=== PATIENT | male | born 1945 | race Caucasian/White ===

== ENCOUNTER 2018-07-10 21:13 | Inpatient (IN) ==
[2018-07-10 21:19] VITALS: TEMP 97.7
[2018-07-10 21:58] LABS: Hematocrit (blood only) 45.9 % (42-52); Hemoglobin 15.6 g/dL (14.0-18.0); Mean Corpuscular Volume 96.8 fL (80-100); Mean Platelet Volume 10.2 fL (7.4-10.4); Platelet Count 197 K/uL (130-400); RDW Coefficient of Variation 13.1 % (11.5-14.5); RDW Standard Deviation 46.2 fL (36.4-46.3); Red Blood Count 4.74 M/uL (4.7-6.1); White Blood Count 7.48 K/uL (4.8-10.8)
[2018-07-10 22:06] LABS: Alanine Aminotransferase 34 U/L (12-78); Albumin Level 3.4 gm/dl (3.4-5.0); Aspartate Aminotransferase 18 U/L (15-37); BUN Creatinine Ratio 14.2 (10-20); Blood Urea Nitrogen 17 mg/dl (7-18); Calcium 8.7 mg/dl (8.5-10.1); Carbon Dioxide 25 mmol/L (21-32); Chloride 109 mmol/L (98-107); Creatinine Clr Calc Pharmacy 66.4 ml/min; Est GFR (African American) 69.8; Est GFR (Non-African American) 60.2; Glucose 93 mg/dl (70-99); Magnesium 2.2 mg/dl (1.8-2.4); Potassium 3.9 mmol/L (3.5-5.1); Sodium 141 mmol/L (136-145)
[2018-07-10 22:09] LABS: INR 1.1 (0.9-1.1); Partial Thromboplastin Ratio 1.1; Partial Thromboplastin Time 29.7 Seconds (21.0-31.0); Prothrombin Time 10.6 Seconds (9.0-12.0)
[2018-07-10 22:12] LABS: Albumin Globulin Ratio 0.9 (0.9-2); Alkaline Phosphatase 75 U/L (45-117); Bilirubin,Total 0.4 mg/dl (0.2-1); Globulin 3.7 gm/dl (2.5-4.0); Phosphorus 3.5 mg/dl (2.5-4.9); Total Protein 7.1 gm/dl (6.4-8.2)
[2018-07-10 22:25] LABS: Troponin I < 0.015 ng/ml (0-0.045)
[2018-07-10] MEDS ORDERED: OPTIRAY 320 125ml IV PRN (22:45)
--- NOTE | 2018-07-10 22:48 | CT Scan Report ---
CT head/brain wo con CT DOSE: 1328.06 mGy.cm HISTORY: left facial numbness TECHNIQUE: Multiaxial CT images of the head were performed without the use of intravenous contrast. A dose lowering technique was utilized adhering to the principles of ALARA. Comparison: None. Findings: The paranasal sinuses and mastoid air cells are clear. The calvarium and skull base are int act. The ventricles and sulci are within normal limits. There is no mass, hematoma, midline shift, or acute infarct. Impression: No acute intracranial abnormality. The above report was generated using voice recognition software. It may contain grammatical, syntax or spelling errors. Electronically signed by: Dexter Griffiths M.D. 07/10/2018 10:47 PM
--- NOTE | 2018-07-10 22:51 | CT Scan Report ---
CT angio head w con HISTORY: left facial numbness TECHNIQUE: Multiaxial CT angiography of the head was performed IV contrast: 15 Maximum inten sity projection images were also obtained. A dose lowering technique was utilized adhering to the pr inciples of KD. COMPARISON: None. FINDINGS: There is no mass, hematoma, midline shift, or acute infarct. Visualized intracranial sports team marketing intern al carotid arteries, distal vertebral arteries, and basilar artery are widely patent. There is no sig nificant stenosis, occlusion, or aneurysm seen within the bilateral ACAs, MCAs, or grades 1 thru 5 teacher. There is mod erate atherosclerotic change at the carotid siphons and basilar the [place]. No high-grade a nd critical stenosis. Congenitally small right vertebral vessel. IMPRESSION: No significant stenosis, occlusion, or aneurysm within the [place]. Moderate atherosclerotic change base of the [place] and cavernous sinuses. No evidence for significant or high-grade stenotic process. The above report was generated using voice recognition software. It may contain grammatical, syntax or spelling errors. Electronically signed by: Dexter Griffiths M.D. 07/10/2018 10:50 PM
--- NOTE | 2018-07-10 22:54 | CT Scan Report ---
CT angio neck with con HISTORY: left facial numbness TECHNIQUE: Multiaxial CT angiography of the neck was performed IV contrast: None. All measurem ents were calculated based on NASCET criteria. Maximum intensity projection images were also obtaine d. A dose lowering technique was utilized adhering to the principles of ALARA. COMPARISON STUDY: None. FINDINGS: The aortic arch and proximal great vessels are widely patent. There is no significant sten osis, occlusion, or dissection identified within the bilateral common carotid, internal carotid, or v ertebral arteries. Scattered plaque formation of the carotid bifurcations. Congenitally small right v ertebral vessel IMPRESSION: No significant stenosis, occlusion, or dissection identified within the carotid or vertebral arteries . Scattered plaque formation. Congenitally small right vertebral artery. The above report was generated using voice recognition software. It may contain grammatical, syntax or spelling errors. Electronically signed by: Dexter Griffiths M.D. 07/10/2018 10:53 PM
[2018-07-10 23:37] LABS: Appearance Urine Clear (Clear); Bacteria Urine Automated Negative (Negative); Bilirubin Urine Negative (Negative); Cast Urine Automated 0 /lpf (0-5); Color Urine Yellow; Epithelial Cell Urine Auto 0-5 /lpf (0-5); Glucose Urine UA Negative (Negative); Ketones Urine Negative (Negative); Leukocyte Esterase Urine Negative (Negative); Nitrite Urine Negative (Negative); Protein Urine Negative (Negative); Specific Gravity Urine > 1.045 (1.000-1.030); Urobilinogen Urine Negative (Negative); pH Urine 6.5 (4.5-7.5)
[2018-07-11] MEDS ORDERED: SODIUM CHLORIDE 0.9% 1000ML 500 ML IV ONE (00:02)
--- NOTE | 2018-07-11 02:09 | Emergency Department Note ---
Entered by Carlos Enrique Zamora acting as a scribe for Adán Stubbs MD History of Present Illness General Chief complaint: Neuro Symptoms/Deficit Stated complaint: LEFT SIDE FACIAL NUMBNESS, HX OF AFIB Time Seen by Provider: 07/10/18 22:00 Source: patient History of Present Illness Onset (ago): hour(s) 10 Location: face (left sided) Pain Consistency: + other (resolving) Quality: + other (numbness) Associated symptoms: + denies other symptoms (cough, congestion, diarrhea); no fever/chills and no nausea/vomiting The patient is a 72 year old male who presents to the Emergency Room with complaints of resolving numbness to the left side of his face beginning 10 hours ago. The patient states he was lightheaded this morning and intermittently throughout the day. He reports it was not until 12 noon that he developed left sided facial numbness. The patient notes he still has some numbness, but his symptoms have started resolving. He states he has a history of ventricular fibrillation and was on Coumadin for several years. The patient reports he stopped taking Coumadin about 2 years ago when he switched cardiologists because he no longer had ventricular fibrillation. He notes he has been taking a baby aspirin since. The patient states he was started on Eliquis last week because his a-fib returned at a follow up appointment with Dr. Sotelo, Cardiology. He denies fevers, chills, cough, congestion, nausea, vomiting, and diarrhea. Home Medications Home Medications Medication Instructions Recorded Confirmed Type apixaban [Eliquis] 5 mg PO BID 07/10/18 07/10/18 History bupropion HCl 150 mg PO DAILY 07/10/18 07/10/18 History multivitamin 1 tab PO DAILY 07/10/18 07/10/18 History Allergies Allergy/AdvReac Type Severity Reaction Status Date / Time metoprolol AdvReac Intermediate Sluggish/Tired Verified 07/10/18 22:13 , dizziness oxycodone AdvReac Unknown couldn't Verified 07/10/18 22:13 sleep bad dreams Past Med/Surg History Medical History Atrial fibrillation (Chronic) Ventricular fibrillation (Resolved) Surgical History No pertinent past surgical history Family History Other FHx: heart disease Family history of high blood pressure Social History Current Living Situation: Spouse Other Information That Helps Us Care for You: No Feels Safe at Home: No Is there a partner from a previous relationship who is making you feel unsafe now?: No Any Concerns about Your Family Situation: No Would You Like to Speak to Someone About Your Situation: No Safety Concerns: Feels Safe At This Time Smoking Status: Never smoker Do You Dip or Chew Tobacco: No Second Hand Exposure: No Tobacco Cessation Education Requested by Patient: No Hx Alcohol Use: Yes Alcohol type: wine and hard liquor Alcohol Intake Frequency : a few times a week Hx Substance Use: No Beliefs That Will Affect Care: None Preferred Language: Nigerien Communication Ability: Effective Occupational Health Specialist Required: No Review of Systems See HPI for pertinent positives & negatives. and A total of 10 systems reviewed and were otherwise negative Physical Exam Vital Signs Vital Signs - 24 hr 07/10/18 21:17 07/10/18 21:44 07/10/18 22:27 Temperature 36.5 C Temperature Source Oral Sepsis Recent Fever Within 48 Hours No Sepsis Action Taken by Nursing No Action Required Pulse Rate 89 84 Pulse Rate [Right Finger] 69 84 Pulse Rhythm Regular Pulse Rhythm [Right Finger] Pulse Strength [Right Finger] Respiratory Rate 18 19 22 Respiratory Effort / Characteristics Non-Labored Spontaneous Respiratory Depth Normal Respiratory Pattern Blood Pressure 170/91 H Blood Pressure [Left Arm] Blood Pressure [Right Arm] 153/94 H 150/100 H Blood Pressure Mean 117 Blood Pressure Mean [Left Arm] Blood Pressure Mean [Right Arm] 113 116 Blood Pressure Position Sitting Blood Pressure Position [Left Arm] Blood Pressure Position [Right Arm] Lying Pulse Oximetry 97 97 97 Oxygen Delivery Method Room Air Room Air Oxygen Flow Rate 07/11/18 00:11 07/11/18 02:00 07/11/18 03:30 Temperature 36.5 C Temperature Source Oral Sepsis Recent Fever Within 48 Hours Sepsis Action Taken by Nursing Pulse Rate 83 Pulse Rate [Right Finger] 70 63 Pulse Rhythm Pulse Rhythm [Right Finger] Irregular Pulse Strength [Right Finger] Normal Respiratory Rate 18 18 18 Respiratory Effort / Characteristics Non-Labored Spontaneous Non-Labored Respiratory Depth Normal Normal Respiratory Pattern Regular Blood Pressure 169/109 H Blood Pressure [Left Arm] 158/100 H Blood Pressure [Right Arm] 126/95 Blood Pressure Mean Blood Pressure Mean [Left Arm] 119 Blood Pressure Mean [Right Arm] 105 Blood Pressure Position Blood Pressure Position [Left Arm] Sitting Blood Pressure Position [Right Arm] Pulse Oximetry 96 97 96 Oxygen Delivery Method Room Air Room Air Room Air Oxygen Flow Rate 97 GENERAL: Awake, alert, well-appearing, in no distress HENT: Normocephalic, atraumatic. Oropharynx with dry mucous membranes and otherwise unremarkable. EYES: Normal conjunctiva. Sclera non-icteric. EOMI. No nystamgus. PEARRL. NECK: Supple. No nuchal rigidity. FROM. No JVD. RESPIRATORY: Clear to auscultation. CARDIAC: Regular rate, irregular rhythm. Extremities warm and well perfused. Pulses equal. ABDOMEN: Soft, non-distended. No tenderness to palpation. No rebound or guarding. No masses. RECTAL: Deferred. MUSCULOSKELETAL: Chest examination reveals no tenderness. The back is symmetrical on inspection without obvious abnormality. There is no CVA tenderness to palpation. No joint edema. LOWER EXTREMITIES: Calves are equal size bilaterally and non-tender. No edema. No discoloration. NEURO: Normal sensorium. No sensory or motor deficits noted. Normal cerebellar function including: finger to nose, alternating palms, and heal to hood.5/5 strength and SILT x 4 extremities. SKIN: No rash or jaundice noted. Course 220: Past medical records reviewed. The patient was evaluated in room B09, and a complete history and physical examination were performed. 0004: I reviewed the patient's case with Dr. Braden, [facility] Hospitalist. He will evaluate the patient for further management. 0024: I reevaluated the patient and discussed the findings with the patient. He verbalized agreement to a hospitalist evaluation and the treatment plan. The patient will be evaluated for further management and care. Administered Medications Gadobutrol (Gadavist 65ml) 9.5 ml IV ONCE PRN PRN Reason: Interaction Checking Stop: 07/15/18 02:51 Last Admin: 07/11/18 02:52 Dose: 9.5 ml Discontinued Medications Sodium Chloride (Nss 1000ml) 500 mls @ 999 mls/hr IV .Q31M ONE Stop: 07/11/18 00:32 Last Infusion: 07/11/18 01:27 Dose: 0 mls/hr Admin: 07/11/18 00:29 Dose: 999 mls/hr Ioversol (Optiray 320 125ml) 125 ml IV ONCE PRN PRN Reason: Interaction Checking Stop: 07/14/18 22:44 Last Admin: 07/10/18 22:45 Dose: 119 ml Medical Decision Making Differential Diagnosis Differential Diagnosis includes but is not limited to dehydration, stroke, anemia, hypoglycemia, hyponatremia, hypernatremia, urinary tract infection, pneumonia, bronchitis, sepsis, gastroenteritis, additional abdominal pathology, metabolic abnormalities and infections. Medical Records Attestation: I reviewed the patient's medical records. Home Medications Current Medication List: was personally reviewed by me Laboratory Data Attestation: I reviewed the patient's lab results. Result diagrams: 07/11/18 04:18 07/11/18 04:14 Lab Results 07/10/18 07/10/18 07/10/18 Range/Units 21:32 21:32 21:32 WBC 7.48 (4.8-10.8) K/uL RBC 4.74 (4.7-6.1) M/uL Hgb 15.6 (14.0-18.0) g/dL Hct 45.9 (42-52) % MCV 96.8 (80-100) fL MCH 32.9 (25-34) pg MCHC 34.0 (32-36) g/dL RDW Std Deviation 46.2 (36.4-46.3) fL RDW Coeff of Roxana 13.1 (11.5-14.5) % Plt Count 197 (130-400) K/uL MPV 10.2 (7.4-10.4) fL Immature Gran % (Auto) % Neut % (Auto) % Lymph % (Auto) % [place] % (Auto) % Eos % (Auto) % Baso % (Auto) % Immature Gran # (Auto) (0.00-0.02) K/uL Neut # (Auto) (1.4-6.5) K/uL Lymph # (Auto) (1.2-3.4) K/uL [place] # (Auto) (0.11-0.59) K/uL Eos # (Auto) (0-0.5) K/uL Baso # (Auto) (0-0.2) K/uL PT 10.6 (9.0-12.0) Seconds INR 1.1 (0.9-1.1) APTT 29.7 (21.0-31.0) Seconds PTT Ratio 1.1 Sodium 141 (136-145) mmol/L Potassium 3.9 (3.5-5.1) mmol/L Chloride 109 H (98-107) mmol/L Carbon Dioxide 25 (21-32) mmol/L Anion Gap 8.0 (3-11) BUN 17 (7-18) mg/dl Creatinine 1.19 (0.6-1.4) mg/dl Est Cr Clr Drug Dosing 66.4 ml/min Est GFR ( Amer) 69.8 Est GFR (Non-Af Amer) 60.2 BUN/Creatinine Ratio 14.2 (10-20) Glucose 93 (70-99) mg/dl POC Glucose (70-99) Calcium 8.7 (8.5-10.1) mg/dl Phosphorus 3.5 (2.5-4.9) mg/dl Magnesium 2.2 (1.8-2.4) mg/dl Total Bilirubin 0.4 (0.2-1) mg/dl Direct Bilirubin (0-0.2) mg/dl AST 18 (15-37) U/L ALT 34 (12-78) U/L Alkaline Phosphatase 75 (45-117) U/L Troponin I < 0.015 (0-0.045) ng/ml Total Protein 7.1 (6.4-8.2) gm/dl Albumin 3.4 (3.4-5.0) gm/dl Globulin 3.7 (2.5-4.0) gm/dl Albumin/Globulin Ratio 0.9 (0.9-2) Triglycerides (0-150) mg/dl Cholesterol (0-200) mg/dl LDL Cholesterol, Calc mg/dl VLDL Cholesterol, Calc mg/dl HDL Cholesterol mg/dl Cholesterol/HDL Ratio TSH 3.910 (0.300-4.500) uIu/ml Urine Color Urine Appearance (Clear) Urine pH (4.5-7.5) Ur Specific [place] (1.000-1.030) Urine Protein (Negative) Urine Glucose (UA) (Negative) Urine Ketones (Negative) Urine Blood (Negative) Urine Nitrite (Negative) Urine Bilirubin (Negative) Urine Urobilinogen (Negative) Ur Leukocyte Esterase (Negative) Urine WBC (Auto) (0-5) /hpf Urine RBC (Auto) (0-4) /hpf U Hyaline Cast (Auto) (0-5) /lpf U Epithel Cells (Auto) (0-5) /lpf Urine Bacteria (Auto) (Negative) 07/10/18 07/10/18 07/11/18 Range/Units 21:37 23:21 04:14 WBC (4.8-10.8) K/uL RBC (4.7-6.1) M/uL Hgb (14.0-18.0) g/dL Hct (42-52) % MCV (80-100) fL MCH (25-34) pg MCHC (32-36) g/dL RDW Std Deviation (36.4-46.3) fL RDW Coeff of Roxana (11.5-14.5) % Plt Count (130-400) K/uL MPV (7.4-10.4) fL Immature Gran % (Auto) % Neut % (Auto) % Lymph % (Auto) % [place] % (Auto) % Eos % (Auto) % Baso % (Auto) % Immature Gran # (Auto) (0.00-0.02) K/uL Neut # (Auto) (1.4-6.5) K/uL Lymph # (Auto) (1.2-3.4) K/uL [place] # (Auto) (0.11-0.59) K/uL Eos # (Auto) (0-0.5) K/uL Baso # (Auto) (0-0.2) K/uL PT (9.0-12.0) Seconds INR (0.9-1.1) APTT (21.0-31.0) Seconds PTT Ratio Sodium 141 (136-145) mmol/L Potassium 4.0 (3.5-5.1) mmol/L Chloride 109 H (98-107) mmol/L Carbon Dioxide 26 (21-32) mmol/L Anion Gap 6.0 (3-11) BUN 14 (7-18) mg/dl Creatinine 1.12 (0.6-1.4) mg/dl Est Cr Clr Drug Dosing 68.9 ml/min Est GFR ( Amer) 75.1 Est GFR (Non-Af Amer) 64.8 BUN/Creatinine Ratio 12.7 (10-20) Glucose 82 (70-99) mg/dl POC Glucose 86 (70-99) Calcium 8.4 L (8.5-10.1) mg/dl Phosphorus (2.5-4.9) mg/dl Magnesium (1.8-2.4) mg/dl Total Bilirubin 0.6 (0.2-1) mg/dl Direct Bilirubin 0.2 (0-0.2) mg/dl AST 15 (15-37) U/L ALT 28 (12-78) U/L Alkaline Phosphatase 62 (45-117) U/L Troponin I < 0.015 (0-0.045) ng/ml Total Protein 6.3 L (6.4-8.2) gm/dl Albumin 3.1 L (3.4-5.0) gm/dl Globulin (2.5-4.0) gm/dl Albumin/Globulin Ratio (0.9-2) Triglycerides 64 (0-150) mg/dl Cholesterol 177 (0-200) mg/dl LDL Cholesterol, Calc 124 mg/dl VLDL Cholesterol, Calc 13 mg/dl HDL Cholesterol 40 mg/dl Cholesterol/HDL Ratio 4 TSH (0.300-4.500) uIu/ml Urine Color Yellow Urine Appearance Clear (Clear) Urine pH 6.5 (4.5-7.5) Ur Specific [place] > 1.045 H (1.000-1.030) Urine Protein Negative (Negative) Urine Glucose (UA) Negative (Negative) Urine Ketones Negative (Negative) Urine Blood 2+ H (Negative) Urine Nitrite Negative (Negative) Urine Bilirubin Negative (Negative) Urine Urobilinogen Negative (Negative) Ur Leukocyte Esterase Negative (Negative) Urine WBC (Auto) 1-5 (0-5) /hpf Urine RBC (Auto) 10-30 H (0-4) /hpf U Hyaline Cast (Auto) 0 (0-5) /lpf U Epithel Cells (Auto) 0-5 (0-5) /lpf Urine Bacteria (Auto) Negative (Negative) 07/11/18 Range/Units 04:18 WBC 5.50 (4.8-10.8) K/uL RBC 4.43 L (4.7-6.1) M/uL Hgb 14.3 (14.0-18.0) g/dL Hct 42.5 (42-52) % MCV 95.9 (80-100) fL MCH 32.3 (25-34) pg MCHC 33.6 (32-36) g/dL RDW Std Deviation 45.9 (36.4-46.3) fL RDW Coeff of Roxana 13.1 (11.5-14.5) % Plt Count 183 (130-400) K/uL MPV 10.1 (7.4-10.4) fL Immature Gran % (Auto) 0.2 % Neut % (Auto) 48.4 % Lymph % (Auto) 36.5 % [place] % (Auto) 9.8 % Eos % (Auto) 4.7 % Baso % (Auto) 0.4 % Immature Gran # (Auto) 0.01 (0.00-0.02) K/uL Neut # (Auto) 2.66 (1.4-6.5) K/uL Lymph # (Auto) 2.01 (1.2-3.4) K/uL [place] # (Auto) 0.54 (0.11-0.59) K/uL Eos # (Auto) 0.26 (0-0.5) K/uL Baso # (Auto) 0.02 (0-0.2) K/uL PT (9.0-12.0) Seconds INR (0.9-1.1) APTT (21.0-31.0) Seconds PTT Ratio Sodium (136-145) mmol/L Potassium (3.5-5.1) mmol/L Chloride (98-107) mmol/L Carbon Dioxide (21-32) mmol/L Anion Gap (3-11) BUN (7-18) mg/dl Creatinine (0.6-1.4) mg/dl Est Cr Clr Drug Dosing ml/min Est GFR ( Amer) Est GFR (Non-Af Amer) BUN/Creatinine Ratio (10-20) Glucose (70-99) mg/dl POC Glucose (70-99) Calcium (8.5-10.1) mg/dl Phosphorus (2.5-4.9) mg/dl Magnesium (1.8-2.4) mg/dl Total Bilirubin (0.2-1) mg/dl Direct Bilirubin (0-0.2) mg/dl AST (15-37) U/L ALT (12-78) U/L Alkaline Phosphatase (45-117) U/L Troponin I (0-0.045) ng/ml Total Protein (6.4-8.2) gm/dl Albumin (3.4-5.0) gm/dl Globulin (2.5-4.0) gm/dl Albumin/Globulin Ratio (0.9-2) Triglycerides (0-150) mg/dl Cholesterol (0-200) mg/dl LDL Cholesterol, Calc mg/dl VLDL Cholesterol, Calc mg/dl HDL Cholesterol mg/dl Cholesterol/HDL Ratio TSH (0.300-4.500) uIu/ml Urine Color Urine Appearance (Clear) Urine pH (4.5-7.5) Ur Specific [place] (1.000-1.030) Urine Protein (Negative) Urine Glucose (UA) (Negative) Urine Ketones (Negative) Urine Blood (Negative) Urine Nitrite (Negative) Urine Bilirubin (Negative) Urine Urobilinogen (Negative) Ur Leukocyte Esterase (Negative) Urine WBC (Auto) (0-5) /hpf Urine RBC (Auto) (0-4) /hpf U Hyaline Cast (Auto) (0-5) /lpf U Epithel Cells (Auto) (0-5) /lpf Urine Bacteria (Auto) (Negative) Imaging Data Radiologist's Impression: Radiology results as stated below per my review and the radiologist's interpretation: CT angio neck with con HISTORY: left facial numbness TECHNIQUE: Multiaxial CT angiography of the neck was performed IV contrast : None. All measurements were calculated based on NASCET criteria. Maximum intensity projection images were also obtained. A dose lowering technique was utilized adhering to the principles of ALARA. COMPARISON STUDY: None. FINDINGS: The aortic arch and proximal great vessels are widely patent. There is no significant stenosis, occlusion, or dissection identified within the bilateral common carotid, internal carotid, or vertebral arteries. Scattered plaque formation of the carotid bifurcations. Congenitally small right vertebral vessel IMPRESSION: No significant stenosis, occlusion, or dissection identified within the carotid or vertebral arteries. Scattered plaque formation. Congenitally small right vertebral artery. The above report was generated using voice recognition software. It may contain grammatical, syntax or spelling errors. Electronically signed by: Dexter Griffiths M.D. 07/10/2018 10:[address] angio head w con HISTORY: left facial numbness TECHNIQUE: Multiaxial CT angiography of the head was performed IV contrast : 15 Maximum intensity projection images were also obtained. A dose lowering technique was utilized adhering to the principles of ALARA. COMPARISON: None. FINDINGS: There is no mass, hematoma, midline shift, or acute infarct. Visualized intracranial internal carotid arteries, distal vertebral arteries, and basilar artery are widely patent. There is no significant stenosis, occlusion, or aneurysm seen within the bilateral ACAs, MCAs, or microbiology director. There is moderate atherosclerotic change at the carotid siphons and basilar the [place]. No high-grade and critical stenosis. Congenitally small right vertebral vessel. IMPRESSION: No significant stenosis, occlusion, or aneurysm within the [place]. Moderate atherosclerotic change base of the [place] and cavernous sinuses. No evidence for significant or high-grade stenotic process. The above report was generated using voice recognition software. It may contain grammatical, syntax or spelling errors. Electronically signed by: Dexter Griffiths M.D. 07/10/2018 10:[address] head/brain wo con CT DOSE: 1328.06 mGy.cm HISTORY: left facial numbness TECHNIQUE: Multiaxial CT images of the head were performed without the use of intravenous contrast. A dose lowering technique was utilized adhering to the principles of ALARA. Comparison: None. Findings: The paranasal sinuses and mastoid air cells are clear. The calvarium and skull base are intact. The ventricles and sulci are within normal limits. There is no mass, hematoma, midline shift, or acute infarct. Impression: No acute intracranial abnormality. The above report was generated using voice recognition software. It may contain grammatical, syntax or spelling errors. Electronically signed by: Dexter Griffiths M.D. 07/10/2018 10:47 PM ECG Data Attestation: I personally reviewed and interpreted this ECG as follows: Indication: other (numbness) Rate (beats per minute): 75 Rhythm: atrial fibrillation Findings: + other (Normal axis.) and + PVC; no ST depression, no ST elevation and no acute ischemic change Blood Pressure Blood Pressure Findings: Normal blood pressure Blood Pressure Disposition: did not require urgent referral MDM Narrative The patient is a pleasant 72-year-old gentleman with a past medical history of paroxysmal atrial fibrillation which recently recurred and was placed back on anticoagulation with Eliquis who presents to emergency department with left- sided facial numbness which began at noon today and progressively improved upon arriving to the emergency department per HPI. On arrival the patient is in no acute distress, afebrile stable vital signs. At this time the patient is neurologically intact including 5/5 strength and SILT x 4 extremities and cerebellar function intact including [id number], alternating palms, heel-to- hood. EKG demonstrates atrial fibrillation without acute ischemia. WBC, H/H, platelets within normal limits. Chemistry without acidosis. Troponin negative. UA negative for infection. CTA of the head and neck negative for ischemia or critical narrowing or obstruction of large vessels. Given the patient's age and risk factors for CVA reasonable to admit the patient for further stroke rule out including MRI. Case was discussed with Dr. Braden, [facility] hospitalist, who will evaluate the patient for admission. Impression & Plan Stroke-like symptoms, Left facial numbness Discharge Plan Visit Data *Final* Discharge Date/Time: 07/11/18 02:00 Chief Complaint: Neuro Symptoms/Deficit Stated Complaint: LEFT SIDE FACIAL NUMBNESS, HX OF AFIB ED Provider: Adán Stubbs Discharge Problem: Stroke-like symptoms, Left facial numbness Patient Disposition: Admitted As Inpatient Discharge Instructions Interventions: ED Discharge Assessment Last Done: 07/11/18 02:00 The scribe's documentation has been prepared under my direction and personally reviewed by me in its entirety. I confirm that the note above accurately reflects all work, treatment, procedures, and medical decision making performed by me.
[2018-07-11] MEDS ORDERED: PHARMACIST DISCHARGE MED REC CONSULT PRN (02:31)
[2018-07-11] MEDS ORDERED: NITROGLYCERIN SL 0.4 MG/TAB TAB SL PRN (02:31)
[2018-07-11] MEDS ORDERED: ALUMINUM/MAGNESIUM SUSP 30 ML UDC PO PRN (02:31)
[2018-07-11] MEDS ORDERED: ACETAMINOPHEN 325 MG TAB PO PRN (02:31)
[2018-07-11] MEDS ORDERED: ONDANSETRON INJ 2 MG/ML 2 ML VIAL IV PRN (02:31)
[2018-07-11] MEDS ORDERED: GADOBUTROL 65ML VIAL IV PRN (02:52)
[2018-07-11 04:33] LABS: Basophils # (auto) 0.02 K/uL (0-0.2); Basophils % (auto) 0.4 %; Eosinophils # (auto) 0.26 K/uL (0-0.5); Eosinophils % (auto) 4.7 %; Hematocrit (blood only) 42.5 % (42-52); Hemoglobin 14.3 g/dL (14.0-18.0); Immature Granulocytes # (auto) 0.01 K/uL (0.00-0.02); Immature Granulocytes % (auto) 0.2 %; Lymphocytes # (auto) 2.01 K/uL (1.2-3.4); Lymphocytes % (auto) 36.5 %; Mean Corpuscular Hgb Conc 33.6 g/dL (32-36); Mean Corpuscular Volume 95.9 fL (80-100); Mean Platelet Volume 10.1 fL (7.4-10.4); Monocytes # (auto) 0.54 K/uL (0.11-0.59); Monocytes % (auto) 9.8 %; Neutrophils # (auto) 2.66 K/uL (1.4-6.5); Neutrophils % (auto) 48.4 %; Platelet Count 183 K/uL (130-400); RDW Coefficient of Variation 13.1 % (11.5-14.5); RDW Standard Deviation 45.9 fL (36.4-46.3); Red Blood Count 4.43 M/uL (4.7-6.1)
[2018-07-11 04:56] LABS: BUN Creatinine Ratio 12.7 (10-20); Blood Urea Nitrogen 14 mg/dl (7-18); Calcium 8.4 mg/dl (8.5-10.1); Carbon Dioxide 26 mmol/L (21-32); Chloride 109 mmol/L (98-107); Creatinine Clr Calc Pharmacy 68.9 ml/min; Est GFR (African American) 75.1; Est GFR (Non-African American) 64.8; Glucose 82 mg/dl (70-99); Sodium 141 mmol/L (136-145)
--- NOTE | 2018-07-11 04:59 | History and Physical Report ---
DATE OF ADMISSION: 07/11/2018 CHIEF COMPLAINT: Left facial tenderness, chest pain, and shortness of breath. HISTORY OF PRESENT ILLNESS: This is a 72-year-old male with past medical history significant for idiopathic cardiomyopathy, BPH, degenerative joint disease presents due to left facial numbness around noon time that is almost resolved now. The patient says since last about 1 week, he was feeling chest pain and shortness of breath on exertion and went to see cardiology, Dr. Sotelo and was found to be in AFib and placed on Eliquis. His Lopressor was stopped because he was not feeling good on it and he was supposed to see Dr. Sotelo tomorrow, but in the afternoon he got left facial numbness and also complaints chest pain and shortness of breath, which prompted him to come to the ER. Currently, his symptoms are almost resolved. CTA of the head and neck was unremarkable. 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 Denies any headaches. No blurred visions. No earache. No runny nose, no sore throat, no cough, no fever, no chills, no nausea, no vomiting, no abdominal pain. Normal bowel and bladder movements. Appetite is okay. Ambulates okay. Only when he climbs steps, he gets some short of breath. Currently, resting comfortable and hemodynamically stable. ALLERGIES: PERCOCET. PAST MEDICAL HISTORY: As mentioned above. PAST SURGICAL HISTORY: Colonoscopy, ablation for heart dysrythmia, spine lumbar and cervical shots, cataract surgery, repair of right inguinal hernia, treatment of bone cyst. MEDICATIONS: The patient is on Eliquis 5 mg p.o. b.i.d., bupropion 150 mg p.o. daily, multivitamin 1 tablet p.o. daily. FAMILY HISTORY: Significant for father had prostate cancer and heart disorder, of [place] in his 80s. Mother had breast cancer and stroke. Brother had melanoma. SOCIAL HISTORY: , lives with , no smoking history. Alcohol, drinks 2-3 beers a day. No drug use. REVIEW OF SYMPTOMS: As per HPI. Rest of review of symptoms negative. PHYSICAL EXAMINATION: GENERAL: The patient is of moderate built, not in acute distress. VITAL SIGNS: Temperature 36.5, pulse 70, respiratory rate 18, blood pressure 126/95, oxygen 96% on room air. HEENT: No pallor, no icterus. Pupils equal, round, and react to light. NECK: No JVD, no neck masses, no carotid bruits. CARDIOVASCULAR: S1, S2 heard, regular rate and rhythm, no murmur, no gallop. RESPIRATORY SYSTEM: Clear to auscultation bilaterally. No wheezing, no crackles. ABDOMEN: Soft, bowel sounds present. Nontender. No distention. CENTRAL NERVOUS SYSTEM: Cranial nerves II-XII grossly intact. Nonfocal. Power 5/5 in all extremities. No pronator drift. Coordination of movement normal. EXTREMITIES: No edema, no erythema. LABS: WBC 7.4, hemoglobin 15.6, hematocrit 45.9, platelets 197. PT 10.6, INR 1.1, APTT 29.7. Sodium 141, potassium 3.9, chloride 109, bicarbonate 25, BUN 17, creatinine 1.1, serum glucose 93, calcium 8.7, phosphorus 2.5, magnesium 2.2, total bilirubin 0.4, AST 18, ALT 34, alkaline phosphatase 125. Troponin I less than 0.015. TSH 3.9. Urinalysis negative for leukocyte esterase and nitrate, 2+ blood is present. Head and Neck CTA no significant stenosis, occlusion, or dissection. CT of the head unremarkable. EKG showing AFib with PVCs at rate of 75, no acute ST changes seen. ASSESSMENT AND PLAN: This is a 72-year-old male who presents with left facial numbness, chest pain, and shortness of breath on exertion. 1. Left facial numbness. It started around noontime and got resolved at this time. Initial workup with CTA of the head and neck and CT of head is unremarkable. We will admit to tele floor and we will do stroke protocol with MRI of the head, echocardiogram, carotid Dopplers. High-dose statin and aspirin and follow the results. We will consult neurology for further recommendation. 2. Recent diagnosis of atrial fibrillation. The patient was not feeling well since 1 week with chest pain and shortness of breath. Saw cardiology and placed on Eliquis recently. His Lopressor was stopped as he was not feeling good on it. Supposed to see cardiology. We will consult cardiology. Follow the troponins and follow echocardiogram. 3. Chest pain, shortness of breath going on for some time. Follow up with senior technical support analyst. Supposed to get a stress test on of this month. We will follow echocardiogram, serial cardiac enzymes, and await cardiology input. 4. Deep vein thrombosis prophylaxis,on Eliquis. DISPOSITION: Observe on tele floor. Expect discharge to home and follow with family doctor. Level I full code. MTDD
[2018-07-11 05:01] LABS: Chol HDL Ratio 4; Cholesterol 177 mg/dl (0-200); HDL Cholesterol 40 mg/dl; LDL Cholesterol Calculated 124 mg/dl; Triglycerides 64 mg/dl (0-150); Troponin I < 0.015 ng/ml (0-0.045); VLDL Cholesterol 13 mg/dl
[2018-07-11 05:31] LABS: Alanine Aminotransferase 28 U/L (12-78); Albumin Level 3.1 gm/dl (3.4-5.0); Alkaline Phosphatase 62 U/L (45-117); Aspartate Aminotransferase 15 U/L (15-37); Bilirubin Direct 0.2 mg/dl (0-0.2); Bilirubin,Total 0.6 mg/dl (0.2-1); Total Protein 6.3 gm/dl (6.4-8.2)
[2018-07-11 06:18] LABS: Estimated Average Glucose 111 mg/dl
--- NOTE | 2018-07-11 06:28 | Ultrasound Report ---
CAROTID ARTERY ULTRASOUND CLINICAL HISTORY: cva? COMPARISON STUDY: Carotid ultrasound September 07, 2008. CTA of the neck July 10, 2018. TECHNIQUE: Real-time, grayscale, and color Doppler sonography of the carotid and vertebral arteries w as performed. Images were viewed in the transverse and longitudinal planes. FINDINGS: There is mild atherosclerotic plaque. Velocity measurements are listed below. COMMON CAROTID PEAK SYSTOLIC VELOCITY (CM/S): RIGHT 60 LEFT 71 ICA PEAK SYSTOLIC VELOCITY (CM/S): RIGHT 60 LEFT 78 Systolic ratios between the internal to common carotid arteries are normal. Antegrade flow is seen in the vertebral arteries. The external carotid arteries are patent. Blood pressure in the right arm measured 145/89. Blood pressure in the left arm measured 161/98. IMPRESSION: No evidence for a hemodynamically significant stenosis. Electronically signed by: Anthony Juarez M.D. 07/11/2018 6:26 AM
--- NOTE | 2018-07-11 07:30 | Magnetic Resonance Report ---
MR brain wo/w con HISTORY: 72 years-old Male cva? Acute strokelike symptoms with acute headache, dizziness, chest pain and shortness of breath. COMPARISON: CT head, CTA head and neck 07/10/2018, brain MRI 09/07/2008. TECHNIQUE: Multiplanar multisequence MRI of the brain was obtained both with and without the use of 9 .5 mL Gadavist IV contrast. FINDINGS: Truck Striker localizer images demonstrate no gross extracranial abnormality. There is no restricted diffusio n to suggest acute or subacute infarction. The midline structures including the corpus callosum, brai nstem, optic chiasm, pituitary and pineal glands appear unremarkable on the sagittal T1 series. No ce rebellar tonsillar herniation. Degenerative changes are noted about the imaged cervical spine. No acute intracranial hemorrhage, midline shift, abnormal extra-axial collections, hydrocephalus or i ntracranial mass. Age-related involutional changes. Mild degree of scattered subcentimeter T2/FLAIR h yperintensities about the periventricular white matter suggestive of mild chronic microvascular ische milvia changes, mildly progressed from 2009 study. The major flow voids appear to be patent. Mastoid air cells are clear. Mild mucosal thickening of the ethmoid and maxillary sinuses. Prior bilateral catar act repair. The skull and soft tissues are unremarkable. There is no abnormal intra-axial or extra-axial enhancement. The bilateral internal auditory canals appear to be unremarkable. Cerebral venous sinuses and intracr anial arterial structures appear unremarkable on the postcontrast images. IMPRESSION: 1. No acute intracranial abnormality, specifically no evidence of acute or subacute infarction. 2. Mild atrophy with suggestion of mild chronic microvascular ischemic changes. 3. No abnormal enhancement. 4. Mild paranasal sinus disease. The above report was generated using voice recognition software. It may contain grammatical, syntax o r spelling errors. Dictated: 07/11/2018 7:05 AM Transcribed: 07/11/2018 7:30 AM Lanie [id number] [email or web address] Electronically signed by: Jeffrey Carreon M.D. 07/11/2018 7:32 AM
[2018-07-11 07:51] VITALS: PULSE 96; O2SAT 95
--- NOTE | 2018-07-11 08:33 | Cardiology Consultation ---
Date of Consultation July 11, 2018 Assessment & Plan (1) Chest pain: Chest pain is atypical. It occurs both at rest and with exertion without identifiable trigger. He underwent cardiac catheterization in the past, many years ago without significant CAD. Recommend stress echo which is pending as an outpatient but cannot be done while hospitalized. (2) Dyspnea: Decreased exercise tolerance with dyspnea with exertion. He appears euvolemic. Stress echo as above. (3) Atrial fibrillation: Heart rate is adequately controlled. He did not tolerate beta-enid therapy as an outpatient in the form of metoprolol succinate 25 mg daily. Stress echo will also allows to evaluate chronotropic response to exercise, which may be playing a role in his dyspnea and decreased exercise tolerance. Continue anticoagulation for stroke risk reduction. We discussed importance of compliance with his anticoagulation therapy, especially in light of his left facial numbness. (4) Disposition: Stress echo will be done this morning. In regards to his left facial numbness, neurology consultation is pending as ordered by primary service. Left facial numbness is not likely cardiac in etiology. Thank you for allowing me to participate in the care of your patient. Please call for any other questions or concerns. Sincerely, Jorge Gore M.D. History of Present Illness Reason for Consultation: Chest pain Requesting Physician: Dr. Braden Attending Physician: Delfino Denton DO History of Present Illness Mr. Zapien is a very pleasant 72-year-old gentleman with a history significant for RVOT tachycardia status post ablation, dyslipidemia, hypertension, and atrial fibrillation. Dr. Sotelo is his primary point of care technician and he was last seen on 07/03/2018. On 07/03/2018, he was found to be in atrial fibrillation with controlled ventricular response. He was started on Eliquis 5 mg twice daily as well as metoprolol succinate 25 mg daily. He reported at that time that he had decreased exercise tolerance and increased dyspnea with exertion, while climbing hills or with more strenuous activities. The symptoms have been occurring over the previous 3 weeks. He was scheduled for outpatient stress test later this month. Yesterday, he admits that when he woke up in the morning he felt a little off. He went 22 hours without sleep. He then developed left facial numbness/ tingling that lasted for approximately 2 hours before resolving. He also had some lightheadedness as well as left-sided chest pressure/stabbing pain. He denies any reduction in strength, difficulty speaking, or difficulty interpreting speech. The chest discomfort can last up to 30 seconds and spontaneously resolved. Chest discomfort occurs at rest or with exertion with no identifiable trigger. There is associated shortness of breath. In regards to his dyspnea with exertion, the symptoms continue to occur as described to Dr. Sotelo as noted above. He denies syncope, near-syncope, palpitations, edema, diarrhea, fevers, abdominal pain, nausea, vomiting, or bleeding such as melena, hematochezia, or hematuria. He admits that he missed 2 doses of Eliquis this week, 1 dose 2 days ago and 1 dose 3 days ago. He took both doses yesterday. Review of systems: As above. Review of systems otherwise negative/ unremarkable. Social history: He denies smoking. He drinks 2 or 3 alcoholic beverages some nights of the week. No drugs. His is a nurse. Three children. He lives at home with his . 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 He was alone in his hospital room. Family history: Mother had breast cancer and stroke. Brother had melanoma. 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) Hypertension Surgical History No pertinent past surgical history Family History Other FHx: heart disease Family history of high blood pressure Social History Current Living Situation: Spouse Other Information That Helps Us Care for You: No Feels Safe at Home: No Is there a partner from a previous relationship who is making you feel unsafe now?: No Any Concerns about Your Family Situation: No Would You Like to Speak to Someone About Your Situation: No Safety Concerns: Feels Safe At This Time Smoking Status: Never smoker Do You Dip or Chew Tobacco: No Second Hand Exposure: No Tobacco Cessation Education Requested by Patient: No Hx Alcohol Use: Yes Alcohol type: wine and hard liquor Alcohol Intake Frequency : a few times a week Hx Substance Use: No Beliefs That Will Affect Care: None Preferred Language: Turkish Communication Ability: Effective Wire Temperer Required: No Physical Exam 2 Vital Signs (Past 24 Hours): Last Vital Signs Temp 36.5 C 07/11/18 07:49 Pulse 96 H 07/11/18 07:49 Resp 18 07/11/18 07:49 BP 145/90 H 07/11/18 07:49 Pulse Ox 95 07/11/18 07:49 Physical Exam: Gen.: No acute distress. Alert and oriented. HEENT: Anicteric sclera. Neck: No JVD. No bruits. Normal carotid upstrokes bilaterally. Cardiac: PMI was nondisplaced. No ventricular heave. Irregularly irregular. Normal S1-S2. No murmurs, rubs, or gallops. Pulmonary: Clear to auscultation bilaterally without wheezes, rales, or rhonchi. Abdomen: Soft, nontender, nondistended, with normoactive bowel sounds. No bruits noted. Extremities: 2+ radial pulses bilaterally. 2+ posterior tibialis pulses bilaterally. No edema or cyanosis. Psychiatric: Affect appears appropriate. Chest: Nontender to palpation. Results & Data Laboratory Results Laboratory Results - last 24 hr 07/10/18 07/10/18 07/10/18 21:32 21:32 21:32 WBC 7.48 RBC 4.74 Hgb 15.6 Hct 45.9 MCV 96.8 MCH 32.9 MCHC 34.0 RDW Std Deviation 46.2 RDW Coeff of Roxana 13.1 Plt Count 197 MPV 10.2 Immature Gran % (Auto) Neut % (Auto) Lymph % (Auto) Ballard % (Auto) Eos % (Auto) Baso % (Auto) Immature Gran # (Auto) Neut # (Auto) Lymph # (Auto) Ballard # (Auto) Eos # (Auto) Baso # (Auto) PT 10.6 INR 1.1 APTT 29.7 PTT Ratio 1.1 Sodium 141 Potassium 3.9 Chloride 109 H Carbon Dioxide 25 Anion Gap 8.0 BUN 17 Creatinine 1.19 Est Cr Clr Drug Dosing 66.4 Est GFR ( Amer) 69.8 Est GFR (Non-Af Amer) 60.2 BUN/Creatinine Ratio 14.2 Glucose 93 POC Glucose Estimat Average Glucose Hemoglobin A1c Calcium 8.7 Phosphorus 3.5 Magnesium 2.2 Total Bilirubin 0.4 Direct Bilirubin AST 18 ALT 34 Alkaline Phosphatase 75 Troponin I < 0.015 Total Protein 7.1 Albumin 3.4 Globulin 3.7 Albumin/Globulin Ratio 0.9 Triglycerides Cholesterol LDL Cholesterol, Calc VLDL Cholesterol, Calc HDL Cholesterol Cholesterol/HDL Ratio TSH 3.910 Urine Color Urine Appearance Urine pH Ur Specific [place] Urine Protein Urine Glucose (UA) Urine Ketones Urine Blood Urine Nitrite Urine Bilirubin Urine Urobilinogen Ur Leukocyte Esterase Urine WBC (Auto) Urine RBC (Auto) U Hyaline Cast (Auto) U Epithel Cells (Auto) Urine Bacteria (Auto) Hepatitis C Ab Screen 07/10/18 07/10/18 07/11/18 21:37 23:21 04:14 WBC RBC Hgb Hct MCV MCH MCHC RDW Std Deviation RDW Coeff of Roxana Plt Count MPV Immature Gran % (Auto) Neut % (Auto) Lymph % (Auto) Ballard % (Auto) Eos % (Auto) Baso % (Auto) Immature Gran # (Auto) Neut # (Auto) Lymph # (Auto) Ballard # (Auto) Eos # (Auto) Baso # (Auto) PT INR APTT PTT Ratio Sodium 141 Potassium 4.0 Chloride 109 H Carbon Dioxide 26 Anion Gap 6.0 BUN 14 Creatinine 1.12 Est Cr Clr Drug Dosing 68.9 Est GFR ( Amer) 75.1 Est GFR (Non-Af Amer) 64.8 BUN/Creatinine Ratio 12.7 Glucose 82 POC Glucose 86 Estimat Average Glucose Hemoglobin A1c Calcium 8.4 L Phosphorus Magnesium Total Bilirubin 0.6 Direct Bilirubin 0.2 AST 15 ALT 28 Alkaline Phosphatase 62 Troponin I < 0.015 Total Protein 6.3 L Albumin 3.1 L Globulin Albumin/Globulin Ratio Triglycerides 64 Cholesterol 177 LDL Cholesterol, Calc 124 VLDL Cholesterol, Calc 13 HDL Cholesterol 40 Cholesterol/HDL Ratio 4 TSH Urine Color Yellow Urine Appearance Clear Urine pH 6.5 Ur Specific [place] > 1.045 H Urine Protein Negative Urine Glucose (UA) Negative Urine Ketones Negative Urine Blood 2+ H Urine Nitrite Negative Urine Bilirubin Negative Urine Urobilinogen Negative Ur Leukocyte Esterase Negative Urine WBC (Auto) 1-5 Urine RBC (Auto) 10-30 H U Hyaline Cast (Auto) 0 U Epithel Cells (Auto) 0-5 Urine Bacteria (Auto) Negative Hepatitis C Ab Screen 07/11/18 07/11/18 07/11/18 04:18 04:18 04:19 WBC 5.50 RBC 4.43 L Hgb 14.3 Hct 42.5 MCV 95.9 MCH 32.3 MCHC 33.6 RDW Std Deviation 45.9 RDW Coeff of Roxana 13.1 Plt Count 183 MPV 10.1 Immature Gran % (Auto) 0.2 Neut % (Auto) 48.4 Lymph % (Auto) 36.5 Ballard % (Auto) 9.8 Eos % (Auto) 4.7 Baso % (Auto) 0.4 Immature Gran # (Auto) 0.01 Neut # (Auto) 2.66 Lymph # (Auto) 2.01 Ballard # (Auto) 0.54 Eos # (Auto) 0.26 Baso # (Auto) 0.02 PT INR APTT PTT Ratio Sodium Potassium Chloride Carbon Dioxide Anion Gap BUN Creatinine Est Cr Clr Drug Dosing Est GFR ( Amer) Est GFR (Non-Af Amer) BUN/Creatinine Ratio Glucose POC Glucose Estimat Average Glucose 111 Hemoglobin A1c 5.5 Calcium Phosphorus Magnesium Total Bilirubin Direct Bilirubin AST ALT Alkaline Phosphatase Troponin I Total Protein Albumin Globulin Albumin/Globulin Ratio Triglycerides Cholesterol LDL Cholesterol, Calc VLDL Cholesterol, Calc HDL Cholesterol Cholesterol/HDL Ratio TSH Urine Color Urine Appearance Urine pH Ur Specific [place] Urine Protein Urine Glucose (UA) Urine Ketones Urine Blood Urine Nitrite Urine Bilirubin Urine Urobilinogen Ur Leukocyte Esterase Urine WBC (Auto) Urine RBC (Auto) U Hyaline Cast (Auto) U Epithel Cells (Auto) Urine Bacteria (Auto) Hepatitis C Ab Screen Neg Diagnostic Findings Telemetry personally reviewed: Atrial fibrillation. Heart rate adequately controlled. ECG personally reviewed: ECG 07/10/2018: AFib with PVCs 75 bpm. Brain MRI 07/11/2018: As per Radiology, no acute intracranial abnormality. Mild atrophy. Carotid duplex 07/11/2018: No hemodynamically significant stenosis. Medications Administered Current Inpatient Medications Acetaminophen (Tylenol) 650 mg PO Q4H PRN PRN Reason: Pain or Fever Stop: 08/10/18 02:30 Al Hydrox/Mg Hydrox/Simethicone (Maalox) 15 ml PO Q4H PRN PRN Reason: Dyspepsia Stop: 08/10/18 02:30 Apixaban (Eliquis) 5 mg PO BID [facility] Stop: 08/10/18 08:59 Aspirin (Ecotrin Ectab) 81 mg PO QAM [facility] Stop: 08/10/18 08:59 Atorvastatin Calcium (Lipitor) 40 mg PO QAM [facility] Stop: 08/10/18 08:59 Bupropion HCl (Wellbutrin-Xl) 150 mg PO DAILY [facility] Stop: 08/10/18 08:59 Gadobutrol (Gadavist 65ml) 9.5 ml IV ONCE PRN PRN Reason: Interaction Checking Stop: 07/15/18 02:51 Last Admin: 07/11/18 02:52 Dose: 9.5 ml Miscellaneous Information (Pharmacist Discharge Med Rec Consult) 1 ea N/A UD PRN PRN Reason: Consult Stop: 08/10/18 02:30 Multivitamins (Multivitamin Tab) 1 tab PO DAILY [facility] Stop: 08/10/18 08:59 Nitroglycerin (Nitrostat) 0.4 mg SL UD PRN PRN Reason: Chest Pain Stop: 08/10/18 02:30 Ondansetron HCl (Zofran) 4 mg IV Q6H PRN PRN Reason: Nausea Stop: 08/10/18 02:30
[2018-07-11] MEDS ORDERED: BuPROPion XL 150 MG TABCR PO SCH (09:00)
[2018-07-11] MEDS ORDERED: APIXABAN 5 MG TABLET PO SCH ×2 (09:00)
[2018-07-11] MEDS ORDERED: ASPIRIN 81 MG ECTAB PO SCH (09:00)
[2018-07-11] MEDS ORDERED: MULTIVITAMIN TAB PO SCH (09:00)
[2018-07-11] MEDS ORDERED: ATORVASTATIN 40 MG TAB PO SCH (09:00)
[2018-07-11] MEDS ORDERED: dilTIAZem HCL 120 MG CAPCR PO SCH (11:15)
--- NOTE | 2018-07-11 12:20 | Discharge Summary ---
Date of Service July 11, 2018 Admission HPI Per Admitting Provider 72-year-old male with past medical history significant for idiopathic cardiomyopathy, BPH, degenerative joint disease presents due to left facial numbness around noon time that is almost resolved now. The patient says since last about 1 week, he was feeling chest pain and shortness of breath on exertion and went to see cardiology, Dr. Sotelo and was found to be in AFib and placed on Eliquis. His Lopressor was stopped because he was not feeling good on it and he was supposed to see Dr. Sotelo tomorrow, but in the afternoon he got left facial numbness and also complaints chest pain and shortness of breath, which prompted him to come to the ER. Currently, his symptoms are almost resolved. CTA of the head and neck was unremarkable. 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 Denies any headaches. No blurred visions. No earache. No runny nose, no sore throat, no cough, no fever, no chills, no nausea, no vomiting, no abdominal pain. Normal bowel and bladder movements. Appetite is okay. Ambulates okay. Only when he climbs steps, he gets some short of breath. Currently, resting comfortable and hemodynamically stable. Admission Exam Per Admitting Provider PHYSICAL EXAMINATION: GENERAL: The patient is of moderate built, not in acute distress. VITAL SIGNS: Temperature 36.5, pulse 70, respiratory rate 18, blood pressure 126/95, oxygen 96% on room air. HEENT: No pallor, no icterus. Pupils equal, round, and react to light. NECK: No JVD, no neck masses, no carotid bruits. CARDIOVASCULAR: S1, S2 heard, regular rate and rhythm, no murmur, no gallop. RESPIRATORY SYSTEM: Clear to auscultation bilaterally. No wheezing, no crackles. ABDOMEN: Soft, bowel sounds present. Nontender. No distention. CENTRAL NERVOUS SYSTEM: Cranial nerves II-XII grossly intact. Nonfocal. Power 5/5 in all extremities. No pronator drift. Coordination of movement normal. EXTREMITIES: No edema, no erythema. Principal Diagnosis AFIB Stroke Symptoms/TIA CP L Facial numbness CARLOS Discharge Data Allergies Allergy/AdvReac Type Severity Reaction Status Date / Time metoprolol AdvReac Intermediate Sluggish/Tired Verified 07/10/18 22:13 , dizziness oxycodone AdvReac Unknown couldn't Verified 07/10/18 22:13 sleep bad dreams Consultations 07/11/18 00:00 ED Decision to Admit Stat 07/11/18 04:14 Consult Case Management - Discharge Planning Routine 07/11/18 07:00 Consult Cardiology Routine Consult Neurology Routine Ordered Studies 07/10/18 22:27 CT angio head w con Stat Neg CT angio neck with con Stat Neg CT head/brain wo con Stat Neg 07/11/18 02:13 MR brain wo/w con Routine IMPRESSION: 1. No acute intracranial abnormality, specifically no evidence of acute or subacute infarction. 2. Mild atrophy with suggestion of mild chronic microvascular ischemic changes. 3. No abnormal enhancement. 4. Mild paranasal sinus disease. 07/11/18 02:31 US carotid doppler BI Routine Negative Current Diagnoses Unspecified atrial fibrillation (07/11/18) Dyspnea, unspecified (07/11/18) Chest pain, unspecified (07/11/18) Allergies metoprolol Adverse Reaction (Intermediate, Verified 07/10/18 22:13) Sluggish/Tired , dizziness oxycodone Adverse Reaction (Unknown, Verified 07/10/18 22:13) couldn't sleep bad dreams Height/Weight/Isolation Height 5 ft 11 in Weight 94.4 kg Chemistry 07/10/18 07/11/18 21:32 04:14 Sodium 141 141 Potassium 3.9 4.0 Chloride 109 H 109 H Carbon Dioxide 25 26 Anion Gap 8.0 6.0 BUN 17 14 Creatinine 1.19 1.12 Glucose 93 82 Urinalysis 07/10/18 23:21 Urine Color Yellow Urine Appearance Clear Urine pH 6.5 Ur Specific [place] > 1.045 H Urine Protein Negative Urine Glucose (UA) Negative Urine Ketones Negative Urine Blood 2+ H Urine Nitrite Negative Urine Bilirubin Negative Hospital Course (1) Stroke-like symptoms: Work up neg DC on ASA, Eliquis, Statin, Diltiazem 120 (2) Atrial fibrillation: Try to cardiovert down the road c Dr Sotelo (3) Dyspnea: Secondary RVR (4) Chest pain: Moises negative, stress echo done, early rapid response during stress echo (5) Left facial numbness: MRI, CTAs all neg DC home and f/u c Neuro, cards, and PCP Add Dilt 120 Total Time Total Time Spent Total Time Spent (In Minutes): 45 mins Total Time Includes: Examination of the Patient, Discharge Planning, Medication Reconciliation and Communication With Other Providers Discharge Plan Discharge Items Patient Disposition: Home - Self-Care Reason For Visit: STROKE LIKE SYMPTOMS Discharge Diagnosis: CP TIA AFIB CARLOS L Facial Numbness Skipped 2 doses of Eliquis Discharge Goals: Improve function Activity: Resume your previous activity Lifting: Gradually increase as tolerated Bathing: No limitations Sexual Activity: When tolerated Exercise/Sports: As tolerated Driving/Machine Use: No limitations Weightbearing: Left weightbearing and Right weightbearing Non-emergency contact: Primary Care Provider, Property Preservation Specialist and Neurologist Call non-emergency contact if: you have any medication questions Diet: Heart Healthy Addtl Provider Instructions: Close f/u Prescriptions: New atorvastatin 40 mg Tablet 40 mg PO QAM Qty: 30 RF: 0 aspirin [Ecotrin Low Strength] 81 mg Tablet,Delayed Release (Dr/Ec) 81 mg PO QAM Qty: 30 RF: 0 diltiazem HCl 120 mg Capsule,Extended Release 24hr 120 mg PO QAM Qty: 30 RF: 0 Continue multivitamin Tablet 1 tab PO DAILY RF: 0 bupropion HCl 150 mg tablet extended release 24 hr 150 mg PO DAILY RF: 0 apixaban [Eliquis] 5 mg Tablet 5 mg PO BID RF: 0 Stand-Alone Forms: [facility] Discharge Orders: Discharge Order (Routine); Ordered 07/11/18 Ordered By: Delfino Denton Admission Data Admit Date/Time: 07/11/18 01:36 Attending Provider: Delfino Denton Admit Provider: Roldan Braden Primary Care Provider: Buddy Oakes Other Providers: Roldan Braden ; Jaya Sotelo Jr ; Kristi Heredia ; You Mack ; Kristi Lin ; Ever Hernandez ; Bienvenido Alexis ; Thao Puckett Service: Telemetry
[2018-07-11 14:10] VITALS: BP 126/95
--- NOTE | 2018-07-15 08:47 | Coding Query ---
CODING QUERY To promote full compliance with coding requirements relating to patient care, provider participation is requested in all cases of motor lodge clerk uncertainty. Please assist us with the question(s) below: Coding Question(s): Please specify below, in your clinical opinion, regarding documentation of Stroke Symptoms/TIA on Discharge Summary. (X ) Possible TIA with stroke symptoms ( ) No TIA - only stroke symptoms Physician's Response(s): Thank you Tammy Hale Principal Diagnosis: "that condition established after study, to be chiefly responsible for occasioning the admission of the patient to the hospital for care." Co-Existing Principal Diagnosis: "when two or more diagnoses equally meet the criteria for principal diagnosis as determined by the circumstances of admission , diagnostic work up, and/or therapy provided, and the Alphabetic Index, Tabular List, or another coding guideline does not provide sequencing direction , any one of the diagnoses may be sequenced first." "When the physician has documented what appears to be a current diagnosis in the body of the record, but has not included the diagnosis in the final diagnostic statement, the physician should be asked whether the diagnosis should be added." (Source Coding [facility] 2 QTR90. p3-4) AQUILINO
== END 2018-07-11 14:53 | disposition home or self-care (01) | DRG 69 ==
LOC: ED 21:13 → 2S 21:13 → OBSVTOIN 07-11 01:36 → 2S 07-11 01:36
DX: G45.9 Transient cerebral ischemic attack, unspecified; I10 Essential (primary) hypertension; Z88.5 Allergy status to narcotic agent; Z51.81 Encounter for therapeutic drug level monitoring; I42.9 Cardiomyopathy, unspecified; R40.2413 Glasgow coma scale score 13-15, at hospital admission; R06.09 Other forms of dyspnea; R29.700 NIHSS score 0; Z82.49 Family history of ischemic heart disease and other diseases of the circulatory system; R06.02 Shortness of breath; Z80.3 Family history of malignant neoplasm of breast; Z80.8 Family history of malignant neoplasm of other organs or systems; Z79.899 Other long term (current) drug therapy; I48.0 Paroxysmal atrial fibrillation; Z82.3 Family history of stroke; R07.89 Other chest pain; Z80.42 Family history of malignant neoplasm of prostate; Z88.8 Allergy status to other drugs, medicaments and biological substances; Z98.890 Other specified postprocedural states; I25.89 Other forms of chronic ischemic heart disease

== ENCOUNTER 2019-06-05 11:11 | Inpatient (IN) ==
[~2019-06-05 11:11] MED LIST: HEPARIN (PORCINE) 1000 UNIT/ML 10 ML (CATH LAB USE ONLY) ONE; MIDAZOLAM HCL 1 MG/ML 2ML VIAL ONE; NITROGLYCERIN/D5W 100MCG/ML 20ML SYR ONE; NiCARDipine HCL INJ 2.5 MG/ML 10 ML AMP ONE; fentaNYL citrate 100 MCG/2 ML VIAL ONE
--- NOTE | 2019-06-05 11:31 | Pre Anesthesia Assessment ---
Date of Service June 05, 2019 Pre Sedation Assessment Vital Signs Temp Pulse Resp BP Pulse Ox 06/05/19 11:11 97.9 F 100 H 18 154/110 H 98 Cardiovascular RRR, no murmur, no edema Respiratory normal respiratory effort, lungs clear to auscultation Pre-Sedation Airway Assessment Smoking Status: Never smoker Hx Sleep Apnea: No Hx Difficult Intubation: No Short, Thick Neck: No Thyromental Distance: > or= 3.5 Finger Breadths Oral Cavity: + WNL Mallampati Class: III Procedure Planning Contraindications for Sedation: none Current Medications Reviewed: Yes Notes The planned sedation has been discussed with the patient. Informed Consent was obtained. I have identified the patient, determined the appropriateness of sedation and have assessed the patient immediately prior to the procedure. All medicine(s) and interventions are by my order.
--- NOTE | 2019-06-05 11:36 | Cardiology Consultation ---
Date of Consultation June 05, 2019 Assessment & Plan (1) Acute MN: Presentation consistent with acute MN and recommend proceeding with emergent cardiac catheterization and likely primary PCI. No apparent contraindications to procedure. Discussed risks, benefits, alternatives of procedure with patient and they are willing to proceed. Further recommendations pending findings of coronary angiography. History of Present Illness History of Present Illness 73-year-old man here with acute chest pain and ECG concerning for acute MN. Patient seen emergently in the ED after heart alert activated in route. Past cardiac history remarkable for paroxysmal atrial fibrillation on Eliquis, ventricular tachycardia post VT ablation in 2004, mild to moderate mitral regurgitation, hypertension, dyslipidemia, resolved cardiomyopathy and borderline thoracic aortic root dilation. Patient was out hiking this morning when developed palpitations, exertional shortness of breath. Symptoms resolved with rest. Later while driving developed acute, substernal, 10-10 chest pain. Denies similar pain in the past. Pain began approximately 45 minutes prior to arrival. EKG in route with EMS showed subtle inferior escalations with anterior depressions and atrial fibrillation. In ED patient still with 4 out of 10 chest pain after sublingual nitroglycerin. Allergies Allergy/AdvReac Type Severity Reaction Status Date / Time cyclobenzaprine Allergy Verified 03/03/19 15:37 [From Flexeril] flecainide Allergy Verified 03/03/19 15:37 rosuvastatin [From Crestor] Allergy Verified 03/03/19 15:37 simvastatin Allergy Verified 03/03/19 15:38 metoprolol AdvReac Intermediate Sluggish/Tired Verified 08/08/18 13:10 , dizziness oxycodone AdvReac Unknown couldn't Verified 08/08/18 13:10 sleep bad dreams Home Medications Home Medications Medication Instructions Recorded Confirmed Type Eliquis 5 mg PO BID 07/10/18 03/03/19 History bupropion HCl 150 mg PO QAM 07/10/18 03/03/19 History multivitamin 1 tab PO QAM 07/10/18 03/03/19 History atorvastatin 40 mg PO QAM #30 tab 07/11/18 03/03/19 Rx diltiazem HCl 120 mg PO QAM #30 cap 07/11/18 03/03/19 Rx acetaminophen [Tylenol Extra 500 mg PO Q6H PRN 08/08/18 03/03/19 History Strength] psyllium PO DAILY 03/03/19 03/03/19 History Patient History Medical History Anxiety Atrial fibrillation (Chronic) Cancer PROSTATE-UNDER OBSERVATION-TO HAVE BIOPSY Cardiomyopathy GERD (gastroesophageal reflux disease) Hypertension Osteoarthritis 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) Sleep apnea MILD-NO DEVICE RX'D Surgical History H/O knee surgery RIGHT History of cardiac radiofrequency ablation 13 [place] [facility] [place] of surgery on arm LEFT CYST History of total hip arthroplasty R/L Family History Other FHx: heart disease Family history of high blood pressure Social History Preferred Language: Somali Communication Ability: Effective Guardian Ad Litem Required: No Beliefs That Will Affect Care: None marital status: Current Living Situation: Spouse Feels Safe at Home: Yes Smoking Status: Never smoker Cigarettes Per Day: SMOKED PIPE/CIGAR IN HIS 20'S ; Second Hand Exposure: No ; Hx Alcohol Use: Yes Alcohol type: beer and hard liquor Hx Substance Use: No Review of Systems Review of Systems: All systems reviewed & are unremarkable except as noted in HPI & below Physical Exam Physical Exam: General: Uncomfortable no acute distress HEENT: Sclerae anicteric, mucous membranes moist Lungs: Clear to auscultation bilaterally, no rhonchi or wheezes Cardiac: Irregular regular, no murmurs Abdomen: Soft, nontender, nondistended, positive bowel sounds. Extremities: Warm, well perfused, no edema. 2+ radial pulses Skin: No rashes or lesions. Neuro: Nonfocal Psych: Alert orient x3, normal affect and mood Results & Data Vital Signs (Past 12 Hours) Vital Signs Temp Pulse Resp BP Pulse Ox 06/05/19 11:11 97.9 F 100 H 18 154/110 H 98 PG Care Time/CCT Total # of Minutes Spent Total Time Spent with Patient: Total time spent is greater than 50% in coordination of care (as documented) at patient's floor/unit and/or counseling patient:
[2019-06-05 11:44] LABS: Basophils # (auto) 0.02 K/uL (0-0.2); Basophils % (auto) 0.3 %; Eosinophils % (auto) 2.5 %; Hematocrit (blood only) 48.9 % (42-52); Hemoglobin 16.7 g/dL (14.0-18.0); Immature Granulocytes # (auto) 0.01 K/uL (0.00-0.02); Immature Granulocytes % (auto) 0.1 %; Lymphocytes # (auto) 3.53 K/uL (1.2-3.4); Lymphocytes % (auto) 44.5 %; Mean Corpuscular Hemoglobin 33.5 pg (25-34); Mean Corpuscular Hgb Conc 34.2 g/dL (32-36); Mean Corpuscular Volume 98.2 fL (80-100); Mean Platelet Volume 9.7 fL (7.4-10.4); Monocytes # (auto) 0.57 K/uL (0.11-0.59); Monocytes % (auto) 7.2 %; Neutrophils # (auto) 3.61 K/uL (1.4-6.5); Neutrophils % (auto) 45.4 %; Platelet Count 264 K/uL (130-400); RDW Coefficient of Variation 12.9 % (11.5-14.5); RDW Standard Deviation 46.1 fL (36.4-46.3); Red Blood Count 4.98 M/uL (4.7-6.1); White Blood Count 7.94 K/uL (4.8-10.8)
[2019-06-05] MEDS ORDERED: fentaNYL citrate 100 MCG/2 ML VIAL ONE (11:48)
[2019-06-05] MEDS ORDERED: MIDAZOLAM HCL 1 MG/ML 2ML VIAL ONE ×2 (11:48→12:18)
[2019-06-05 11:54] LABS: INR 1.1 (0.9-1.1); Prothrombin Time 11.1 Seconds (9.0-12.0)
[2019-06-05 12:03] LABS: Albumin Level 3.7 gm/dl (3.4-5.0); BUN Creatinine Ratio 11.4 (10-20); Calcium 9.5 mg/dl (8.5-10.1); Creatinine Clr Calc Pharmacy 60.3 ml/min; Est GFR (African American) 62.9; Est GFR (Non-African American) 54.3; Potassium 3.7 mmol/L (3.5-5.1)
[2019-06-05] MEDS ORDERED: HEPARIN (PORCINE) 1000 UNIT/ML 10 ML (CATH LAB USE ONLY) ONE (12:13)
[2019-06-05 12:16] LABS: Albumin Globulin Ratio 0.9 (0.9-2); Bilirubin,Total 0.9 mg/dl (0.2-1); Creatine Kinase MB 2.3 ng/ml (0.5-3.6); Globulin 4.2 gm/dl (2.5-4.0); Total Protein 7.9 gm/dl (6.4-8.2); Troponin I 0.034 ng/ml (0-0.045)
[2019-06-05 12:17] LABS: iSTAT Creatinine 1.1 mg/dl (0.6-1.3); iSTAT Ionized Calcium 1.14 mmol/l (1.12-1.32); iSTAT Potassium 3.8 mEq/L (3.3-5.0)
[2019-06-05] MEDS ORDERED: ADENOSINE IV SOLN 3 MG/ML 20 ML VIAL IV ONE (12:33)
[2019-06-05] MEDS ORDERED: PRASUGREL HCL 5 MG TAB PO ONE (12:49)
[2019-06-05] MEDS ORDERED: ONDANSETRON INJ 2 MG/ML 2 ML VIAL IV PRN (12:58)
[2019-06-05] MEDS ORDERED: NITROGLYCERIN SL 0.4 MG/TAB TAB SL PRN (12:58)
[2019-06-05] MEDS ORDERED: SODIUM CHLORIDE 0.9% 1000ML 1,000 ML IV SCH (13:00)
[2019-06-05] MEDS ORDERED: ICU PROTOCOL FOR HYPERGLYCEMIA PRN (13:03)
--- NOTE | 2019-06-05 13:19 | Post Anesthesia Assessment ---
Date of Service June 05, 2019 Post Sedation Assessment Vital Signs Temp Pulse Pulse Resp BP BP Pulse Ox 06/05/19 13:01 92 H 16 146/103 H 98 06/05/19 11:11 97.9 F 100 H 18 154/110 H 98 Recovery Score Activity: Moves 4 extremities Respiration: Deep Breath/Cough Circulation: +/-20% PreAnes Value Consciousness: Fully Awake Oxygen Saturation: O2 needed for >90% Post Anesthesia Score: 2 Discharge Sedation Level of Care: Fast Track Phase II Post Sedation Plan On clinical assessment, the patient appears to have tolerated the sedation without complications. Patient is recovering as anticipated. Patient will continue to be monitored by nursing and may be discharged when sedation discharge criteria are met per below protocol. Upon Completions of procedure up to 15 minutes continue every 5 minute vital signs and the P.A.R. score; then discharge to a Phase I or Fast Track to Phase II per the following guidelines: * Discharge Patient to appropriate Phase II area if PAR is 8 or greater or return to pre- procedure baseline. The post - procedure orders will be as directed. * If PAR score is less than 8 or not return to pre-procedure baseline then patient will follow Phase I monitoring till PAR is reached for Phase II. The Phase I may be done in procedure room or may call to secure a Phase I area. * If naloxone or flumazenil are used for reversal, hold in Phase I for continued monitoring from when last reversal dose was given for a minimum of 60 minutes or longer pending the nurse and/or physician discretion of patient condition before discharge to Phase II. Please call the Sedation Physician to re-evaluate and complete post-note for discharge to Phase II area. Do NOT discharge from procedure sedation or Phase 1 until post- sedation evaluation note is complete by procedure /sedation MD Sedation Discharge Instructions to be given to the patient at discharge to home.
--- NOTE | 2019-06-05 13:35 | Cardiac Catheterization ---
ACC Data: Field Ironworker Cardiac Status Clinical evaluation leading to the procedure CAD Presenation: Non STEMI Anginal Classification: CCS IV Heart Failure: No Cardiogenic Shock within 24 Hours: No Cardiac Arrest within 24 Hours: No Imaging Studies Past 6 Months: No Stress Studies Past 6 Months: No Diagnostic Physicians Name: Jeffrey Ayala MD Status: Emergency Closure Device Recommendations: PCI without planned CABG PCI Indication: PCI for high risk Non-SASHA Lesion Segment Name: Proximal OM 2 Culprit Artery: Yes Stenosis Prior to Rx (%): 100 Chronic Total Occlusion: No FFR: No Pre-Procedure FELA Flow: 0 Previously Treated Lesion: No Lesion Complexity: Non-High/Non-C Lesion Length (mm): 18 Thrombus Present: Yes Bifurcation Lesion: Yes Guidewire Across Lesion: Stenosis Post-Procedure (%): 0 Post-Procedure FELA Flow: 3 Devices(s) Deployed: Yes Yes Lesion #2 Segment Name: Proximal OM 3 Culprit Artery: No Stenosis Prior to Rx (%): 75 Chronic Total Occlusion: No IVUS: No FFR: No Pre-Procedure FELA Flow: 2 Previously Treated Lesion: No Lesion Complexity: Non-High/Non-C Lesion Length (mm): 15 Thrombus Present: No Bifurcation Lesion: Yes Guidewire Across Lesion: Yes Stenosis Post-Procedure (%): 0 Post-Procedure FELA Flow: 3 Devices(s) Deployed: Yes Intraprocedure Events Significant Disection: No Perforation: No Cardiac Cath Procedure Full Procedure Date June 05, 2019 Pre-Procedure Diagnosis Pre-Procedure Diagnosis: Non STEMI AUC Score AUC Score: 9 Post-Procedure Diagnosis Post-Procedure Diagnosis: Severe CAD and Successful PCI Procedure(s) Performed Procedure(s) Performed: Coronary Angiography, Drug Eluting Stent and Fractional Flow [place] [employer] Superintendent Jeffrey Ayala MD Jacker Feeder(s) Wilian Estimated Blood Loss Estimated Blood Loss: 15 Medication(s) Medication(s): Fentanyl, Heparin, Lidocaine 1%, Nicardipine, Nitroglycerin and Versed Medication(s): Prasugrel Summary of Findings Indication: Acute PR/heart Alert Access: 6 Fr slender right radial artery Catheters: [place]k, JL4, EBU 4 guide Findings: LM -mildly calcified, 20% ostial LAD -moderate caliber vessel, proximal luminal irregularities, 70% mid focal stenosis at takeoff of first septal, distal luminal irregularities as wraps around apex Circumflex -large caliber vessel, 40 to 50% mid segment stenosis followed by ectatic artery at trifurcation of OM 2/OM 3 and distal AV groove circumflex. large OM 2 100% acute occlusion. OM 3 with 70 to 80% proximal stenosis and FELA II flow. Distal circumflex into left PLB with luminal irregularities. RCA -large caliber vessel, dominant, 95% ostial stenosis, mid to distal luminal irregularities with FELA-3 flow -- PCI -- Antithrombotic therapy: Heparin, Prasugrel Procedure: Left main cannulated with EBU 4.0 guide Plodder Operator 50 wire passed across lesion into distal vessel Proximal OM 2 lesion predilated with 2.5 compliant balloon Pro-water wire placed into OM 3 Proximal OM 3 dilated with 2.5 balloon Dilated OM 3 lesion stented with 2.5 x 15 mm Jakob drug-eluting stent Proximal OM 2 stented with 2.75 x 22 mm Rosebud VERENA OM 2 stent post-dilated with 3.0 noncompliant balloon IC vasodilators administered for spasm Post procedure FELA 3 flow, stent well expanded with minimal residual stenosis and no apparent cardiac complications. Wires removed from circumflex system and banquet pilot 50 placed down LAD ACIST FFR catheter placed across mid LAD stenosis Pd/Pa 0.90 FFR 0.76 Post procedure angiography revealed no LAD complications. Arterial Closure: TR band Summary: 1. Acute 100% proximal OM 2 occlusion OM 3 originates from takeoff of OM 2, with 70 to 80% proximal stenosis and FELA II flow 2. Severe multi-vessel non-culprit coronary artery disease -95% ostial RCA 70% mid LAD (FFR 0.76). 3. Successful PCI of proximal OM 2 with single drug-eluting stent (2.75 x 22 mm Rosebud; postdilated with 3.0 NC). 4. Successful PCI of proximal OM 3 with single drug-eluting stent (2.5 x 15 mm Jakob). Recommendations: Admit to ICU for continued monitoring Loaded with Prasugrel 60 mg in catheter. Transition to clopidogrel prior to discharge. Resume Eliquis tomorrow Home on triple therapy with Eliquis, clopidogrel, aspirin for 1 month then continue on Eliquis/clopidogrel alone for at least 1 year. Trend troponins until peak, Check Echo Uptitrate beta-enid/ANNALEE as BP allows High-dose statin Consult cardiac Rehab Plan on staged PCI of RCA, LAD either this hospitalization or in the next week or 2 as an outpatient. Hemodynamics Rest Ao:: 166/101/120 Final Ao: 140/87/110 LV: -- Recommendations Recommendations: PCI without planned CABG Specimens Specimens: None Radiation Exposure (mGy) 4208 Contrast (mls) 200 Fluids (cc crystalloids) Fluids (cc crystalloids): 140 Drains Drains: None Anesthesia Moderate Procedural Complication(s) None Disposition ICU I attest to the content of the Intraoperative Record and any orders documented therein. Any exceptions are noted below. [facility] Card Cath Procedure Codes Cardiac Catheterization Procedure 1: Cardiovascular Cath Procedures: 11727 Coronaries Procedure 2: Cardiovascular Cath Procedures: 02490 (Doppler) Pressure Wire Moderate Sedation Procedure 1: Sedation/Anesthesia: 48839 Mod Sedation by the same physician;Init15 Min Child Age 5 & Up Procedure 2: Sedation/Anesthesia: 76327 Mod Sedation by the same physician; Ea [id number] Minutes Stenting Procedure 1: Cardiovascular Stent Procedures: 96945 Perc transluminal revascularization of acute sub/total occl, aMI Procedure 2: Cardiovascular Stent Procedures: 05969 Ea addl branch of a major coronary artery PG Care Time/CCT Total # of Minutes Spent Total Time Spent with Patient: Total time spent is greater than 50% in coordination of care (as documented) at patient's floor/unit and/or counseling patient:
--- NOTE | 2019-06-05 13:38 | Emergency Department Note ---
Entered by Dustin Sanchez acting as a scribe for History of Present Illness General Chief complaint: Heart Alert Source: patient History of Present Illness Provider complaint: Chest pain Onset (ago): minute(s) 45 Location: chest Radiation: extremity Pain Consistency: + constant Current Pain Intensity: 6 Relieved By: + none Associated symptoms: + nausea/vomiting (No vomiting) and + other (Dizzy); no diaphoresis The patient is a 73 year old male who presents to the Emergency Room with complaints of constant chest pain that started about 45 minutes prior to arrival. The patient states the pain was initially a 10/10 but now it is about a 6/10. The patient reports that he went on a hike this morning, which he does every morning, and while he was driving home the pain started. He notes that the pain radiates down his left arm. The patient endorses nausea as well but denies any vomiting. En route the patient received 324mg Aspirin, 4mg Zofran, and Nitro (x3 via spray). The patient has a history of Afib and is on Eliquis. He also has had an ablation in the past. He follows with Dr. Sotelo for cardiology. The patient has not taken any of his medications this morning. Home Medications Home Medications Medication Instructions Recorded Confirmed Type Eliquis 5 mg PO BID 07/10/18 06/05/19 History bupropion HCl 150 mg PO QAM 07/10/18 06/05/19 History multivitamin 1 tab PO QAM 07/10/18 06/05/19 History atorvastatin 40 mg PO QAM #30 tab 07/11/18 06/05/19 Rx diltiazem HCl 120 mg PO QAM #30 cap 07/11/18 06/05/19 Rx Allergies Allergy/AdvReac Type Severity Reaction Status Date / Time cyclobenzaprine Allergy Verified 03/03/19 15:37 [From Flexeril] flecainide Allergy Verified 03/03/19 15:37 rosuvastatin [From Crestor] Allergy Verified 03/03/19 15:37 simvastatin Allergy Verified 03/03/19 15:38 metoprolol AdvReac Intermediate Sluggish/Tired Verified 08/08/18 13:10 , dizziness oxycodone AdvReac Unknown couldn't Verified 08/08/18 13:10 sleep bad dreams Past Med/Surg History Medical History Anxiety GERD (gastroesophageal reflux disease) Hypertension Idiopathic cardiomyopathy EF has since normalized Osteoarthritis Paroxysmal atrial fibrillation Prostate cancer 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) Sleep apnea Surgical History H/O inguinal hernia repair H/O knee surgery RIGHT History of cardiac radiofrequency ablation 13 YRS AGO [facility] [place] History of surgery on arm LEFT CYST History of total hip arthroplasty R/L Family History Father Heart disease Prostate cancer Mother Breast cancer Social History Preferred Language: Wolof Communication Ability: Effective Fund Controller Required: No Beliefs That Will Affect Care: None marital status: Current Living Situation: Spouse Other Information That Helps Us Care for You: No Feels Safe at Home: Yes Safety Concerns: Feels Safe At This Time Smoking Status: Former smoker Tobacco Type: pipe, cigars and smokeless tobacco ; Cigarettes Per Day: SMOKED PIPE/CIGAR IN HIS 20'S ; Do You Dip or Chew Tobacco: No ; Second Hand Exposure: No ; Tobacco Cessation Education Requested by Patient: No Hx Alcohol Use: Yes Alcohol type: beer, wine and hard liquor Alcohol Intake Frequency: Daily Alcohol Intake Frequency Comment: 1 drinks/day Hx Substance Use: No Review of Systems See HPI for pertinent positives & negatives. and A total of 10 systems reviewed and were otherwise negative Physical Exam Vital Signs Vital Signs - 24 hr 06/05/19 11:11 06/05/19 12:56 06/05/19 13:01 Temperature 36.6 C Temperature Source Oral Pulse Rate 100 H Pulse Rate [Left Apical] 92 H Pulse Rhythm [Left Apical] Regular Pulse Strength [Left Apical] Normal Respiratory Rate 18 16 Respiratory Effort / Characteristics Non-Labored Spontaneous Non-Labored Respiratory Depth Normal Normal Respiratory Pattern Regular Blood Pressure 154/110 H Blood Pressure [Left Arm] 146/103 H Blood Pressure Mean 124 Blood Pressure Mean [Left Arm] 117 Blood Pressure Position Sitting Pulse Oximetry 98 98 Oxygen Delivery Method Room Air Room Air Room Air Sepsis Recent Fever Within 48 Hours No Sepsis Action Taken by Nursing No Action Required GENERAL: Patient is awake, alert, and very anxious appearing. Uncomfortable. EYES: The conjunctivae are clear. The pupils are round and reactive. EARS, NOSE, MOUTH AND THROAT: The nose is without any evidence of any deformity. Mucous membranes are moist.Tongue is midline NECK: The neck is nontender and supple. RESPIRATORY: Normal respiratory effort is noted. There is no evidence of wheezing rhonchi or rales to auscultation. CARDIOVASCULAR: Regular rate and rhythm noted. There no murmurs rubs or gallops normal S1 normal S2 GASTROINTESTINAL: The abdomen is soft. Bowel sounds are present in all quadrants. Abdomen is nontender. MUSCULOSKELETAL/EXTREMITIES: There is no evidence of gross deformity. Full range of motion is noted in the hips and shoulders. SKIN: There is no obvious evidence of any rash. There are no petechiae, pallor or cyanosis noted. NEUROLOGIC: Patient is awake alert and oriented x3. Course Course 1111: Past medical records reviewed. A heart alert was called 4 minutes prior to the patient's arrival. The patient was evaluated in room B01, and a complete history and physical examination were performed. Dr. Ayala - Cardiology was at bedside shortly after and I discussed the case with him. Dr. Ayala is going to accept the patient to take him to the labeling machine operator for further treatment. Consultations Consultation #1: Dr. Ayala - Cardiology was at bedside shortly after and I discussed the case with him. Dr. Ayala is going to accept the patient to take him to the labeling machine operator for further treatment. Time: 11:11 Administered Medications Aspirin (Ecotrin Ectab) 81 mg PO [facility] Stop: 07/06/19 08:59 Last Admin: 06/06/19 07:49 Dose: 81 mg Documented by: [id number] Atorvastatin Calcium (Lipitor) 80 mg PO [facility] Stop: 07/06/19 08:59 Last Admin: 06/06/19 07:49 Dose: 80 mg Documented by: [id number] Bupropion HCl (Wellbutrin-Xl) 150 mg PO [facility] Stop: 07/06/19 08:59 Last Admin: 06/06/19 09:53 Dose: 150 mg Documented by: [id number] Lisinopril (Zestril) 5 mg PO [facility] Stop: 07/06/19 08:59 Last Admin: 06/06/19 09:53 Dose: 5 mg Documented by: [id number] Metoprolol Tartrate (Lopressor) 25 mg PO BID [facility] Stop: 07/05/19 20:59 Last Admin: 06/06/19 07:49 Dose: 25 mg Documented by: [id number] Admin: 06/05/19 20:16 Dose: 25 mg Documented by: [id number] Admin: 06/05/19 15:23 Dose: 25 mg Documented by: [id number] Multivitamins (Multivitamin Tab) 1 tab PO QAM [facility] Stop: 07/06/19 08:59 Last Admin: 06/06/19 09:53 Dose: 1 tab Documented by: [id number] Prasugrel (Effient) 10 mg PO QAM [facility] Stop: 07/06/19 08:59 Last Admin: 06/06/19 08:33 Dose: 10 mg Documented by: [id number] Discontinued Medications Adenosine (Adenoscan) Confirm Administered Dose 120 mg IV .STK-MED ONE Stop: 06/05/19 12:34 Last Admin: 06/05/19 12:44 Dose: 120 mg Documented by: [id number] Fentanyl Citrate (Fentanyl Citrate) Confirm Administered Dose 100 mcg .ROUTE .STK-MED ONE Stop: 06/05/19 11:09 Last Admin: 06/05/19 12:42 Dose: 100 mcg Documented by: [id number] Fentanyl Citrate (Fentanyl Citrate) Confirm Administered Dose 100 mcg .ROUTE .STK-MED ONE Stop: 06/05/19 11:49 Last Increment: 06/05/19 12:46 Dose: 50 mcg Documented by: [id number] Heparin Sodium (Porcine) (Heparin Iv Bolus (Wardrobe Assistant Use Only)) Confirm Administered Dose 10,000 units .ROUTE .STK-MED ONE Stop: 06/05/19 11:09 Last Admin: 06/05/19 12:41 Dose: 10,000 units Documented by: [id number] Heparin Sodium (Porcine) (Heparin Iv Bolus (Wardrobe Assistant Use Only)) Confirm Administered Dose 10,000 units .ROUTE .STK-MED ONE Stop: 06/05/19 12:14 Last Admin: 06/05/19 12:46 Dose: 1,000 units Documented by: [id number] Heparin Sodium/Sodium Chloride (Heparin/Nss 1000 Unit/500ml Flush Bag) Confirm Administered Dose 3,000 units IV .STK-MED ONE Stop: 06/05/19 11:10 Last Admin: 06/05/19 12:41 Dose: 3,000 units Documented by: [id number] Sodium Chloride (Nss 1000ml) 1,000 mls @ 100 mls/hr IV .Q10H SUZIE Stop: 06/05/19 20:29 Last Infusion: 06/06/19 00:45 Dose: 0 mls/hr Documented by: [id number] Admin: 06/05/19 14:33 Dose: 100 mls/hr Documented by: [id number] Midazolam HCl (Versed) Confirm Administered Dose 2 mg .ROUTE .STK-MED ONE Stop: 06/05/19 11:09 Last Admin: 06/05/19 12:42 Dose: 2 mg Documented by: [id number] Midazolam HCl (Versed) Confirm Administered Dose 2 mg .ROUTE .STK-MED ONE Stop: 06/05/19 11:49 Last Admin: 06/05/19 12:43 Dose: 2 mg Documented by: [id number] Midazolam HCl (Versed) Confirm Administered Dose 2 mg .ROUTE .STK-MED ONE Stop: 06/05/19 12:19 Last Admin: 06/05/19 14:32 Dose: Not Given Documented by: [id number] Nicardipine HCl (Cardene) Confirm Administered Dose 25 mg .ROUTE .STK-MED ONE Stop: 06/05/19 11:09 Last Admin: 06/05/19 12:41 Dose: 25 mg Documented by: [id number] Nitroglycerin/Dextrose (Nitroglycerin/D5w 100 Mcg/Ml 20ml Syringe) Confirm Administered Dose 2,000 mcg .ROUTE .STK-MED ONE Stop: 06/05/19 11:10 Last Admin: 06/05/19 12:42 Dose: 2,000 mcg Documented by: [id number] Prasugrel (Effient) Confirm Administered Dose 15 mg PO .STK-MED ONE Stop: 06/05/19 12:50 Last Admin: 06/05/19 14:39 Dose: 15 mg Documented by: [id number] Medical Decision Making Differential Diagnosis Differential diagnoses includes but is not limited to acute coronary syndrome, myocardial infarction, pericarditis, pulmonary embolus, aortic dissection, pneumonia, pneumothorax, musculoskeletal, shingles, esophageal. Medical Records Attestation: I reviewed the patient's medical records. Home Medications Current Medication List: was personally reviewed by me Laboratory Data Attestation: I reviewed the patient's lab results. Result diagrams: 06/06/19 04:27 06/06/19 04:27 Lab Results 06/05/19 06/05/19 06/05/19 Range/Units 11:12 11:12 11:12 WBC 7.94 (4.8-10.8) K/uL RBC 4.98 (4.7-6.1) M/uL Hgb 16.7 (14.0-18.0) g/dL POC Hgb (14.0-18.0) g/dl Hct 48.9 (42-52) % POC Hct (42-52) % MCV 98.2 (80-100) fL MCH 33.5 (25-34) pg MCHC 34.2 (32-36) g/dL RDW Std Deviation 46.1 (36.4-46.3) fL RDW Coeff of Roxana 12.9 (11.5-14.5) % Plt Count 264 (130-400) K/uL MPV 9.7 (7.4-10.4) fL Immature Gran % (Auto) 0.1 % Neut % (Auto) 45.4 % Lymph % (Auto) 44.5 % [place] % (Auto) 7.2 % Eos % (Auto) 2.5 % Baso % (Auto) 0.3 % Immature Gran # (Auto) 0.01 (0.00-0.02) K/uL Neut # (Auto) 3.61 (1.4-6.5) K/uL Lymph # (Auto) 3.53 H (1.2-3.4) K/uL [place] # (Auto) 0.57 (0.11-0.59) K/uL Eos # (Auto) 0.20 (0-0.5) K/uL Baso # (Auto) 0.02 (0-0.2) K/uL PT 11.1 (9.0-12.0) Seconds INR 1.1 (0.9-1.1) APTT 27.0 (21.0-31.0) Seconds PTT Ratio 1.0 Activ Coag Time Kaolin (94-140) SECONDS POC Sodium (135-144) mEq/L Sodium 142 (136-145) mmol/L POC Potassium (3.3-5.0) mEq/L Potassium 3.7 (3.5-5.1) mmol/L POC Chloride (101-112) mEq/L Chloride 109 H (98-107) mmol/L Carbon Dioxide 25 (21-32) mmol/L POC Total CO2 (24-31) mEq/l Anion Gap 8.0 (3-11) POC Anion Gap (16-25) mmol/L POC BUN (7-18) mg/dl BUN 15 (7-18) mg/dl Creatinine 1.29 (0.6-1.4) mg/dl POC Creatinine (0.6-1.3) mg/dl Est Cr Clr Drug Dosing 60.3 ml/min Est GFR ( Amer) 62.9 Est GFR (Non-Af Amer) 54.3 BUN/Creatinine Ratio 11.4 (10-20) Glucose 120 H (70-99) mg/dl POC Glucose (other) (70-99) mg/dl Calcium 9.5 (8.5-10.1) mg/dl POC Ioniz Calcium Checo (1.12-1.32) mmol/l Total Bilirubin 0.9 (0.2-1) mg/dl AST 22 (15-37) U/L ALT 42 (12-78) U/L Alkaline Phosphatase 97 (45-117) U/L Total Creatine Kinase 104 (39-308) U/L CK-MB (CK-2) 2.3 (0.5-3.6) ng/ml CK/CKMB % Calc 2.2 (0-3.0) POC Troponin I (0-0.045) ng/ml Troponin I 0.034 (0-0.045) ng/ml Total Protein 7.9 (6.4-8.2) gm/dl Albumin 3.7 (3.4-5.0) gm/dl Globulin 4.2 H (2.5-4.0) gm/dl Albumin/Globulin Ratio 0.9 (0.9-2) Lipase 126 (73-393) U/L 06/05/19 06/05/19 06/05/19 Range/Units 11:22 11:22 12:10 WBC (4.8-10.8) K/uL RBC (4.7-6.1) M/uL Hgb (14.0-18.0) g/dL POC Hgb 17.0 (14.0-18.0) g/dl Hct (42-52) % POC Hct 50 (42-52) % MCV (80-100) fL MCH (25-34) pg MCHC (32-36) g/dL RDW Std Deviation (36.4-46.3) fL RDW Coeff of Roxana (11.5-14.5) % Plt Count (130-400) K/uL MPV (7.4-10.4) fL Immature Gran % (Auto) % Neut % (Auto) % Lymph % (Auto) % [place] % (Auto) % Eos % (Auto) % Baso % (Auto) % Immature Gran # (Auto) (0.00-0.02) K/uL Neut # (Auto) (1.4-6.5) K/uL Lymph # (Auto) (1.2-3.4) K/uL [place] # (Auto) (0.11-0.59) K/uL Eos # (Auto) (0-0.5) K/uL Baso # (Auto) (0-0.2) K/uL PT (9.0-12.0) Seconds INR (0.9-1.1) APTT (21.0-31.0) Seconds PTT Ratio Activ Coag Time Kaolin 246 H (94-140) SECONDS POC Sodium 142 (135-144) mEq/L Sodium (136-145) mmol/L POC Potassium 3.8 (3.3-5.0) mEq/L Potassium (3.5-5.1) mmol/L POC Chloride 107 (101-112) mEq/L Chloride (98-107) mmol/L Carbon Dioxide (21-32) mmol/L POC Total CO2 22 L (24-31) mEq/l Anion Gap (3-11) POC Anion Gap 18.0 (16-25) mmol/L POC BUN 14 (7-18) mg/dl BUN (7-18) mg/dl Creatinine (0.6-1.4) mg/dl POC Creatinine 1.1 (0.6-1.3) mg/dl Est Cr Clr Drug Dosing ml/min Est GFR ( Amer) Est GFR (Non-Af Amer) BUN/Creatinine Ratio (10-20) Glucose (70-99) mg/dl POC Glucose (other) 123 H (70-99) mg/dl Calcium (8.5-10.1) mg/dl POC Ioniz Calcium [place] 1.14 (1.12-1.32) mmol/l Total Bilirubin (0.2-1) mg/dl AST (15-37) U/L ALT (12-78) U/L Alkaline Phosphatase (45-117) U/L Total Creatine Kinase (39-308) U/L CK-MB (CK-2) (0.5-3.6) ng/ml CK/CKMB % Calc (0-3.0) POC Troponin I 0.05 H (0-0.045) ng/ml Troponin I (0-0.045) ng/ml Total Protein (6.4-8.2) gm/dl Albumin (3.4-5.0) gm/dl Globulin (2.5-4.0) gm/dl Albumin/Globulin Ratio (0.9-2) Lipase (73-393) U/L 06/05/19 Range/Units 12:26 WBC (4.8-10.8) K/uL RBC (4.7-6.1) M/uL Hgb (14.0-18.0) g/dL POC Hgb (14.0-18.0) g/dl Hct (42-52) % POC Hct (42-52) % MCV (80-100) fL MCH (25-34) pg MCHC (32-36) g/dL RDW Std Deviation (36.4-46.3) fL RDW Coeff of Roxana (11.5-14.5) % Plt Count (130-400) K/uL MPV (7.4-10.4) fL Immature Gran % (Auto) % Neut % (Auto) % Lymph % (Auto) % [place] % (Auto) % Eos % (Auto) % Baso % (Auto) % Immature Gran # (Auto) (0.00-0.02) K/uL Neut # (Auto) (1.4-6.5) K/uL Lymph # (Auto) (1.2-3.4) K/uL [place] # (Auto) (0.11-0.59) K/uL Eos # (Auto) (0-0.5) K/uL Baso # (Auto) (0-0.2) K/uL PT (9.0-12.0) Seconds INR (0.9-1.1) APTT (21.0-31.0) Seconds PTT Ratio Activ Coag Time Kaolin 307 H (94-140) SECONDS POC Sodium (135-144) mEq/L Sodium (136-145) mmol/L POC Potassium (3.3-5.0) mEq/L Potassium (3.5-5.1) mmol/L POC Chloride (101-112) mEq/L Chloride (98-107) mmol/L Carbon Dioxide (21-32) mmol/L POC Total CO2 (24-31) mEq/l Anion Gap (3-11) POC Anion Gap (16-25) mmol/L POC BUN (7-18) mg/dl BUN (7-18) mg/dl Creatinine (0.6-1.4) mg/dl POC Creatinine (0.6-1.3) mg/dl Est Cr Clr Drug Dosing ml/min Est GFR ( Amer) Est GFR (Non-Af Amer) BUN/Creatinine Ratio (10-20) Glucose (70-99) mg/dl POC Glucose (other) (70-99) mg/dl Calcium (8.5-10.1) mg/dl POC Ioniz Calcium [place]co (1.12-1.32) mmol/l Total Bilirubin (0.2-1) mg/dl AST (15-37) U/L ALT (12-78) U/L Alkaline Phosphatase (45-117) U/L Total Creatine Kinase (39-308) U/L CK-MB (CK-2) (0.5-3.6) ng/ml CK/CKMB % Calc (0-3.0) POC Troponin I (0-0.045) ng/ml Troponin I (0-0.045) ng/ml Total Protein (6.4-8.2) gm/dl Albumin (3.4-5.0) gm/dl Globulin (2.5-4.0) gm/dl Albumin/Globulin Ratio (0.9-2) Lipase (73-393) U/L ECG Data Attestation: I personally reviewed and interpreted this ECG as follows: Indication: + chest pain Rate (beats per minute): 86 Rhythm: + atrial fibrillation ECG ST segments: + ST depression (Anterior, Improved from pre-hospital EKG) Comparison ECG Date: from (08/13/18) Change: the following changes noted (ST changes are new. ) Additional Comments: PRE HOSPITAL EKG Atrial Fibrillation, rate of 90, no PVC, ST depressions anteriorly consistent with posterior MN, new from 08/13/18 Blood Pressure Blood Pressure Findings: Elevated blood pressure Blood Pressure Disposition: Referred to patients primary care provider MDM Narrative The patient is a 73-year-old male who presented to the emergency department for an evaluation of chest pain. I received a prehospital notification about this patient. He was found to have very significant chest pain with an abnormal EKG. He was treated with aspirin and nitroglycerin prior to arrival but continued to have very significant pain. The patient's EKG appeared to be consistent with a posterior wall myocardial infarction. For this reason he was made a heart alert prior to arrival. The patient was evaluated in the emergency department by the music assistant. I discussed the patient's condition and his EKG with him. He was found to be a good candidate for cardiac catheterization. He was taken directly to the cardiac catheterization lab. The patient was agreeable to this treatment at this time. Impression & Plan Acute posterior myocardial infarction, Chest pain, Atrial fibrillation Discharge Plan Visit Data *Final* Discharge Date/Time: 06/05/19 11:27 Chief Complaint: Heart Alert ED Provider: Edin Renee Discharge Problem: Acute posterior myocardial infarction, Chest pain, Atrial fibrillation Patient Disposition: Still a Patient Discharge Instructions Interventions: ED Discharge Assessment Last Done: 06/05/19 11:27 Discharge Problem: Chest pain Qualifiers: Chest pain type: chest pain due to myocardial ischemia Ischemic chest pain type: unstable angina pectoris Qualified Code(s): I20.0 - Unstable angina Atrial fibrillation Qualifiers: Atrial fibrillation type: unspecified Qualified Code(s): I48.91 - Unspecified atrial fibrillation The scribe's documentation has been prepared under my direction and personally reviewed by me in its entirety. I confirm that the note above accurately reflects all work, treatment, procedures, and medical decision making performed by me.
--- NOTE | 2019-06-05 15:16 | XRay Report ---
XR chest 1V portable HISTORY: Status post cardiac catheterization. Atypical chest pain. COMPARISON: Chest 04/23/2013. FINDINGS: The heart is top normal in size. Nodular density at the right lung base measuring 1 cm favo rs a nipple shadow. Otherwise, lungs are clear. No pleural effusions. No pneumothorax. Degenerative c hanges within the bilateral shoulders are noted. IMPRESSION: No acute process. ACT 112: Negative or not required by law. Electronically signed by: Serge French M.D. 06/05/2019 3:15 PM
[2019-06-05] MEDS: METOPROLOL TARTRATE 25 MG TAB PO SCH ×2 (15:23→20:16)
--- NOTE | 2019-06-05 18:50 | Critical Care Consultation ---
Date of Consultation June 05, 2019 Assessment & Plan (1) Paroxysmal atrial fibrillation: Reason Critically Ill: 73 year old man status post cath and stent placement x2 Neuro: Intact, no deficits, cam icu negative Respiratory: No concerns, breathing comfortably on room air Cardiovascular Per Cardiology will restart eliquis tomorrow, plan is for discharge on eliquis, clopidgrel and ASA for 1 month and stopping ASA and continuing with eliquis clopidogrel thereafter Continuing to trend troponins, Will get echo Start beta enid, ANNALEE and high intensity statin therapy Cardiac rehab on d/c Plan to stent RCA and LAD at some point as well, possibly this admission WIll continue on monitor into tomorrow Atrial fibrillation rate controlled at the moment Continuing metoprolol and will resume anticoagulation tomorrow GI: No concerns at this time Renal: Creatinine 1.29 will get am BMP Endocrine No concerns at this time will continue to monitor Blood sugars Psych: Continue bupropion for MANUEL Code status Full code Will monitor overnight and likely step down tomorrow. (2) Anxiety: (3) DVT prophylaxis: (4) NSTEMI (non-ST elevated myocardial infarction): Supervising Physician Co-Signing Physician Notes Dr. Torre was resident physician during care of patient. I separately evaluated patient for cabrera portions of the history and the exam. I was present during the critical portion of medical decision making, and I discussed the case with the resident. I generally agree with the findings and plan. Successful PCI, has had some ectopy will optimize electrolytes. Will remain in ICU as there is a possible plan for second stage PCI in the next 24 hours. History of Present Illness Reason for Consultation: Status post cardiac catheterization and stent placement Requesting Physician: Jeffrey Ayala MD Attending Physician: Jeffrey Ayala MD History of Present Illness Stan Zapien is a 73 year old man with history of Atrial fibrillation on eliquis s/p ablation who presented to the Emergency Department after sudden onset of 10/10 substernal chest pain. He was on a hike this morning as part of his usual routine and noticed greater shortness of breath than he usually does. He caught his breath and went out to eat, on the drive home he had sudden 10/10 substernal chest pain that radiated to his left arm. He called 911 and patient was given ASA, nitro en route. He was found to have ST elevations in inferior leads and depressions anteriorly. Heart alert was called and patient was found to 95% blockage in RCA and 70% mid LAD, patient had stent placed aross OM 2 (culprit lesion 100% occluded) and OM3. Also 95% occlusion to ostial RCA and 70% LAD obstructions. Patient was admitted to ICU post cath for observation. Besides during the hike he denies shortness of breath, fevers, chills, palpitations, syncope, presycnope, abdominal pain, vomiting or other symptoms on review. Allergies Allergy/AdvReac Type Severity Reaction Status Date / Time cyclobenzaprine Allergy Verified 03/03/19 15:37 [From Flexeril] flecainide Allergy Verified 03/03/19 15:37 rosuvastatin [From Crestor] Allergy Verified 03/03/19 15:37 simvastatin Allergy Verified 03/03/19 15:38 metoprolol AdvReac Intermediate Sluggish/Tired Verified 08/08/18 13:10 , dizziness oxycodone AdvReac Unknown couldn't Verified 08/08/18 13:10 sleep bad dreams Home Medications Home Medications Medication Instructions Recorded Confirmed Type Eliquis 5 mg PO BID 07/10/18 06/05/19 History bupropion HCl 150 mg PO QAM 07/10/18 06/05/19 History multivitamin 1 tab PO QAM 07/10/18 06/05/19 History atorvastatin 40 mg PO QAM #30 tab 07/11/18 06/05/19 Rx diltiazem HCl 120 mg PO QAM #30 cap 07/11/18 06/05/19 Rx Patient History Medical History Anxiety GERD (gastroesophageal reflux disease) Hypertension Idiopathic cardiomyopathy EF has since normalized Osteoarthritis Paroxysmal atrial fibrillation Prostate cancer 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) Sleep apnea Surgical History H/O inguinal hernia repair H/O knee surgery RIGHT History of cardiac radiofrequency ablation 13 YRS AGO [facility] [place] History of surgery on arm LEFT CYST History of total hip arthroplasty R/L Family History Father Heart disease Prostate cancer Mother Breast cancer Social History Preferred Language: Yoruba Communication Ability: Effective Membership Advisor Required: No Beliefs That Will Affect Care: None marital status: Current Living Situation: Spouse Other Information That Helps Us Care for You: No Feels Safe at Home: Yes Safety Concerns: Feels Safe At This Time Smoking Status: Former smoker Tobacco Type: pipe, cigars and smokeless tobacco ; Cigarettes Per Day: SMOKED PIPE/CIGAR IN HIS 20'S ; Do You Dip or Chew Tobacco: No ; Second Hand Exposure: No ; Tobacco Cessation Education Requested by Patient: No Hx Alcohol Use: Yes Alcohol type: beer, wine and hard liquor Alcohol Intake Frequency: Daily Alcohol Intake Frequency Comment: 1 drinks/day Hx Substance Use: No Review of Systems Review of Systems: All systems reviewed & are unremarkable except as noted in HPI & below Physical Exam Physical Exam: Constitutional: Well appearing male lying comfortably in bed watching television and chatting with his . No apparent distress Eyes: Anicteric SClerae, EOMMI Respiratory: No increased work of breathing, no accessory muscle use, lungs clear to auscultation Cardiovascular: Irregularly irregular rhythm, no murmurs, rubs skips or gallops, chest pain is not reproducible, no leg swelling GI: Abdomen soft/nontender, no masses no hepatosplenomegaly SKin: warm dry no rashes, bandage over arterial insertion Results & Data Vital Signs (Past 12 Hours) Vital Signs Temp Pulse Pulse Resp BP BP Pulse Ox 06/05/19 17:00 92 H 18 98 06/05/19 16:50 91 H 18 97 06/05/19 16:40 83 10 L 99 06/05/19 16:30 93 H 15 97 06/05/19 16:22 95 H 15 142/103 H 98 06/05/19 16:20 89 17 96 06/05/19 16:10 91 H 16 97 06/05/19 16:00 36.6 C 86 16 97 06/05/19 15:30 93 H 10 L 98 06/05/19 15:22 89 18 131/97 98 06/05/19 15:15 90 20 98 06/05/19 14:56 96 H 17 131/107 H 98 06/05/19 14:25 89 20 135/90 96 06/05/19 13:45 89 17 122/82 97 06/05/19 13:30 87 21 97 06/05/19 13:28 36.6 C 81 21 155/104 H 97 06/05/19 13:15 90 16 142/98 H 98 06/05/19 13:01 92 H 16 146/103 H 98 06/05/19 11:11 36.6 C 100 H 18 154/110 H 98 Resident Activity Tracking Resident Involvement: Resident Care Provided Care Provided: Adult [facility] Medicine
--- NOTE | 2019-06-05 20:04 | History & Physical Report ---
Date of Service June 05, 2019 Assessment & Plan (1) STEMI (ST elevation myocardial infarction): -Admitted to ICU post cardiac cath -Patient presented to ED with reports of exertional shortness of breath and chest pain today -EKG showed subtle ST elevations in the inferior leads with ST depressions in the anterior leads, patient taken emergently to cardiac Mask Design Engineer -s/p one VERENA to OM2 and one VERENA to OM3; cardiac cath also showed 95% ostial RCA and 70% mid LAD -Per cardiology, "Plan on staged PCI of RCA, LAD either this hospitalization or in the next week or 2 as an outpatient." -Outpatient food service manager is Dr. Sotelo -Loaded with Prasugrel 60 mg during cath, transition to clopidogrel prior to discharge -Home on triple therapy with Eliquis, clopidogrel, aspirin for 1 month then continue on Eliquis/clopidogrel alone for at least 1 year. -Continue cycle cardiac enzymes -Resting echo -Beta-enid and ANNALEE inhibitor started, uptitrate as BP allows -High intensity statin (2) Paroxysmal atrial fibrillation: -Currently in atrial fibrillation with rates in the 90s -Prior to hospitalization, was rate controlled on diltiazem which was discontinued in favor of metoprolol as above -Anticoagulated on Eliquis, resume tomorrow as per interventional cardiology (3) Anxiety: -Continue bupropion (4) DVT prophylaxis: -Resuming Eliquis tomorrow History of Present Illness Chief Complaint: Chest pain and shortness of breath Primary Care Provider: Buddy Oakes MD 73-year-old male who presented to the ED for evaluation of chest pain shortness of breath. Patient reports he was out for his usual walk this morning and when he started to walk up the hill, he became very short of breath, more than his usual. Symptoms resolved with rest. Patient reports he then went out for breakfast and while driving home, he developed severe, 10/10 chest pain. EMS was called and patient was brought to the ED for further evaluation. EKG showed subtle inferior ST elevations with anterior ST depressions. Patient was taken emergently to the Mask Design Engineer. Patient received 2 drug-eluting stents, one to OM 2 and one to OM 3. Cardiac cath also showed 95% ostial RCA and 70% mid LAD. Patient was seen and examined in the ICU. Denies any current chest pain or shortness of breath. Reports that up until today, he was feeling very well. No other recent illness, fevers, chills. Denies abdominal pain, nausea, vomiting, diarrhea. No urinary symptoms. Allergies Allergy/AdvReac Type Severity Reaction Status Date / Time cyclobenzaprine Allergy Verified 03/03/19 15:37 [From Flexeril] flecainide Allergy Verified 03/03/19 15:37 rosuvastatin [From Crestor] Allergy Verified 03/03/19 15:37 simvastatin Allergy Verified 03/03/19 15:38 metoprolol AdvReac Intermediate Sluggish/Tired Verified 08/08/18 13:10 , dizziness oxycodone AdvReac Unknown couldn't Verified 08/08/18 13:10 sleep bad dreams Home Medications Home Medications Medication Instructions Recorded Confirmed Type Eliquis 5 mg PO BID 07/10/18 06/05/19 History bupropion HCl 150 mg PO QAM 07/10/18 06/05/19 History multivitamin 1 tab PO QAM 07/10/18 06/05/19 History atorvastatin 40 mg PO QAM #30 tab 07/11/18 06/05/19 Rx diltiazem HCl 120 mg PO QAM #30 cap 07/11/18 06/05/19 Rx Past Med/Surg History Medical History Anxiety GERD (gastroesophageal reflux disease) Hypertension Idiopathic cardiomyopathy EF has since normalized Osteoarthritis Paroxysmal atrial fibrillation Prostate cancer 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) Sleep apnea Surgical History H/O inguinal hernia repair H/O knee surgery RIGHT History of cardiac radiofrequency ablation 13 YRS AGO [facility] [place] History of surgery on arm LEFT CYST History of total hip arthroplasty R/L Family History Father Heart disease Prostate cancer Mother Breast cancer Social History Preferred Language: Chadian Communication Ability: Effective Rooming House Keeper Required: No Beliefs That Will Affect Care: None marital status: Current Living Situation: Spouse Other Information That Helps Us Care for You: No Feels Safe at Home: Yes Safety Concerns: Feels Safe At This Time Smoking Status: Former smoker Tobacco Type: pipe, cigars and smokeless tobacco ; Cigarettes Per Day: SMOKED PIPE/CIGAR IN HIS 20'S ; Do You Dip or Chew Tobacco: No ; Second Hand Exposure: No ; Tobacco Cessation Education Requested by Patient: No Hx Alcohol Use: Yes Alcohol type: beer, wine and hard liquor Alcohol Intake Frequency: Daily Alcohol Intake Frequency Comment: 1 drinks/day Hx Substance Use: No Review of Systems Review of Systems: ROS per HPI, all other systems reviewed and negative Physical Exam Constitutional: WD/WN, vitals as above Eyes: PERRL, conjunctivae normal, anicteric sclerae ENMT: external ear and nose normal, oropharynx normal Respiratory: normal respiratory effort, lungs clear to auscultation Cardiovascular: Rate/Rhythm: regular rate and + irregularly irregular Vessels: normal peripheral pulses Extremities: no edema Gastrointestinal (Abdomen): normal bowel sounds, soft, nontender, no hepatosplenomegaly Musculoskeletal: no cyanosis or clubbing, extremities motor strength 5/5 Right radial cardiac cath site dressing dry and intact, no signs of hematoma, CSM checks intact to right hand Skin: no rashes, warm and dry Neurologic: PERRL, EOMI, accommodation nl, no face palsy, no dysarthria Psychiatric: A+Ox3, euthymic affect Results & Data Vital Signs (Past 12 Hours) Vital Signs Temp Pulse Pulse Resp BP BP Pulse Ox 06/05/19 17:00 92 H 18 98 06/05/19 16:50 91 H 18 97 06/05/19 16:40 83 10 L 99 06/05/19 16:30 93 H 15 97 06/05/19 16:22 95 H 15 142/103 H 98 06/05/19 16:20 89 17 96 06/05/19 16:10 91 H 16 97 06/05/19 16:00 36.6 C 86 16 97 06/05/19 15:30 93 H 10 L 98 06/05/19 15:22 89 18 131/97 98 06/05/19 15:15 90 20 98 06/05/19 14:56 96 H 17 131/107 H 98 06/05/19 14:25 89 20 135/90 96 06/05/19 13:45 89 17 122/82 97 06/05/19 13:30 87 21 97 06/05/19 13:28 36.6 C 81 21 155/104 H 97 06/05/19 13:15 90 16 142/98 H 98 06/05/19 13:01 92 H 16 146/103 H 98 06/05/19 11:11 36.6 C 100 H 18 154/110 H 98 Laboratory Results Short CBC 06/05/19 Range/Units 11:12 WBC 7.94 (4.8-10.8) K/uL Hgb 16.7 (14.0-18.0) g/dL Hct 48.9 (42-52) % Plt Count 264 (130-400) K/uL BMP 06/05/19 11:12 Sodium 142 Potassium 3.7 Chloride 109 H Carbon Dioxide 25 BUN 15 Creatinine 1.29 Glucose 120 H Calcium 9.5 Cardiac Enzymes 06/05/19 06/05/19 Range/Units 11:12 19:12 Total Creatine Kinase 104 (39-308) U/L CK-MB (CK-2) 2.3 (0.5-3.6) ng/ml Troponin I 0.034 38.300 H* (0-0.045) ng/ml Liver Function 06/05/19 Range/Units 11:12 Total Bilirubin 0.9 (0.2-1) mg/dl AST 22 (15-37) U/L ALT 42 (12-78) U/L Alkaline Phosphatase 97 (45-117) U/L Albumin 3.7 (3.4-5.0) gm/dl Diagnostic Findings CXR IMPRESSION: No acute process. Code Status & VTE Plan VTE Prophylaxis Plan VTE Prophylaxis will be ordered: Yes Supervising Physician Co-Signing Physician Notes Pt was seen and examined. Agreed with Angelic MCDANIEL exam, assessment and plan. 73 yo M with PMH of Afib present to the ER with chest pain associated SOB. EKG done in the ER showed subtle ST elevations in the inferior leads with ST depressions in the anterior leads. Code heart alert called and pt had emergent cardiac cath done. Cardiac cath done by dr. Ayala showed LAD -moderate caliber vessel, proximal luminal irregularities, 70% mid focal stenosis at takeoff of first septal, distal luminal irregularities as wraps around apex. Circumflex -large caliber vessel, 40 to 50% mid segment stenosis followed by ectatic artery at trifurcation of OM 2/OM 3 and distal AV groove circumflex. large OM 2 100% acute occlusion. OM 3 with 70 to 80% proximal stenosis and FELA II flow. Distal circumflex into left PLB with luminal irregularities. RCA -large caliber vessel, dominant, 95% ostial stenosis, mid to distal luminal irregularities with FELA-3 flow. . Successful PCI of proximal OM 2 and proximal OM 3 with single drug- eluting stent. Current pt denies any chest pain. will need to continue triple therapy with Eliquis, clopidogrel, aspirin for 1 month then continue on Eliquis/clopidogrel alone for at least 1 year. Continue monitor closely. MD Estefani
[2019-06-06 04:45] LABS: Basophils # (auto) 0.02 K/uL (0-0.2); Basophils % (auto) 0.2 %; Eosinophils # (auto) 0.17 K/uL (0-0.5); Eosinophils % (auto) 1.6 %; Hematocrit (blood only) 43.7 % (42-52); Hemoglobin 14.8 g/dL (14.0-18.0); Immature Granulocytes # (auto) 0.02 K/uL (0.00-0.02); Immature Granulocytes % (auto) 0.2 %; Lymphocytes # (auto) 2.39 K/uL (1.2-3.4); Lymphocytes % (auto) 22.1 %; Mean Corpuscular Hemoglobin 32.8 pg (25-34); Mean Corpuscular Hgb Conc 33.9 g/dL (32-36); Mean Corpuscular Volume 96.9 fL (80-100); Mean Platelet Volume 9.7 fL (7.4-10.4); Monocytes # (auto) 0.84 K/uL (0.11-0.59); Monocytes % (auto) 7.8 %; Neutrophils # (auto) 7.37 K/uL (1.4-6.5); Neutrophils % (auto) 68.1 %; Platelet Count 200 K/uL (130-400); RDW Coefficient of Variation 13.1 % (11.5-14.5); RDW Standard Deviation 46.3 fL (36.4-46.3); Red Blood Count 4.51 M/uL (4.7-6.1); White Blood Count 10.81 K/uL (4.8-10.8)
[2019-06-06 05:06] LABS: BUN Creatinine Ratio 11.6 (10-20); Calcium 8.6 mg/dl (8.5-10.1); Creatinine Clr Calc Pharmacy 69.2 ml/min; Est GFR (African American) 77.1; Est GFR (Non-African American) 66.5
--- NOTE | 2019-06-06 06:22 | Critical Care Progress Note ---
Date of Service June 06, 2019 Assessment & Plan (1) Paroxysmal atrial fibrillation: Reason Critically Ill: 73 year old man status post cath and stent placement x2 Neuro: Intact, no deficits, cam icu negative Respiratory: No concerns, breathing comfortably on room air Cardiovascular Patient seen by Dr. Ayala today, will hold eliquis, make patient NPO and he will return to laboratory chief for stenting of RCA and LAD today Hold eliquis until tomorrow plan is for discharge on eliquis, clopidgrel and ASA for 1 month and stopping ASA and continuing with eliquis clopidogrel thereafter Will re trend troponins Start beta enid, ANNALEE and high intensity statin therapy Cardiac rehab on d/c Will continue on monitor into tomorrow Atrial fibrillation rate controlled at the moment Continuing metoprolol and will resume anticoagulation tomorrow GI: No concerns at this time Renal: Creatinine improved to 1.09 will get am BMP Endocrine No concerns at this time will continue to monitor Blood sugars Psych: Continue bupropion for MANUEL Code status Full code Will monitor overnight and likely step down tomorrow. (2) Anxiety: (3) DVT prophylaxis: (4) NSTEMI (non-ST elevated myocardial infarction): Supervising Physician Co-Signing Physician Notes Dr. Torre was resident physician during care of patient. I separately evaluated patient for cabrera portions of the history and the exam. I was present during the critical portion of medical decision making, and I discussed the case with the resident. I generally agree with the findings and plan. Decrease in ectopy frequency, going for additional PCI today. Subjective Mr. Zapien is resting comfortable, he was having some central chest pain last night that has since completely abated, He continues to deny dyspnea, palpitations, presyncope, diaphoresis, fevers, chills, abdominal pain, N/V/D/C, or any other concerning symptoms. He hopes to get his remaining blockages stented today. Review of Systems Review of Systems: All systems reviewed & are unremarkable except as noted in HPI & below Physical Exam Physical Exam: Constitutional: Well appearing 73 year old man appearing younger than stated age resting comfortably in bed. No apparent distress Eyes: EOMMI, Respiratory: Chest expansion equal, no increased work of breathing, no murmurs rubs skips or gallops Cardiovascular: Heart sounds dual, no murmurs rubs skips or gallops, Irregularly irregular rhythm, good peripheral pulses GI: Abdomen soft/ nontender, no masses MSK: NAD Skin: Arterial access point with gauze bandage in place on right arm, no hematoma no active bleeding Results & Data Vital Signs (Past 12 Hours) Vital Signs Temp Pulse Resp BP Pulse Ox 06/06/19 05:23 85 9 L 111/86 96 06/06/19 05:00 70 16 96 06/06/19 04:30 81 14 96 06/06/19 04:23 78 10 L 107/75 95 06/06/19 04:00 36.4 C L 77 17 95 06/06/19 03:30 68 10 L 96 06/06/19 03:23 76 9 L 109/84 94 06/06/19 03:00 81 21 93 06/06/19 02:30 85 16 87 L 06/06/19 02:23 81 8 L 133/92 95 06/06/19 02:00 80 19 95 06/06/19 01:30 78 19 96 06/06/19 01:23 83 18 133/98 06/06/19 01:00 85 12 94 06/06/19 00:30 85 10 L 95 06/06/19 00:23 86 6 L 135/91 06/06/19 00:00 36.9 C 84 14 98 06/05/19 23:30 83 20 95 06/05/19 23:22 84 0 L 134/91 96 06/05/19 23:00 90 15 97 06/05/19 22:30 90 17 96 06/05/19 22:23 82 16 121/90 98 06/05/19 22:00 88 27 H 98 06/05/19 21:30 86 17 96 06/05/19 21:23 100 H 20 135/93 92 06/05/19 21:00 94 H 18 96 06/05/19 20:30 87 21 96 06/05/19 20:22 93 H 7 L 138/99 97 06/05/19 20:00 36.9 C 91 H 10 L 97 06/05/19 19:54 84 13 139/97 98 06/05/19 19:30 98 H 19 98 06/05/19 19:22 94 H 16 153/105 H 96 06/05/19 19:00 88 19 96 01/02/20 18:45 92 H 18 98 Resident Activity Tracking Resident Involvement: Resident Care Provided Care Provided: Adult Hospital Medicine
[2019-06-06 07:08] LABS: Estimated Average Glucose 117 mg/dl; Hemoglobin A1C 5.7 % (4.5-5.6)
[2019-06-06] MEDS: MULTIVITAMIN TAB PO SCH ×2 (07:49→09:53)
[2019-06-06] MEDS: ATORVASTATIN 40 MG TAB PO SCH (07:49)
[2019-06-06] MEDS: ASPIRIN 81 MG ECTAB PO SCH (07:49)
[2019-06-06] MEDS: METOPROLOL TARTRATE 25 MG TAB PO SCH ×3 (07:49→21:15)
[2019-06-06] MEDS: BuPROPion XL 150 MG TABCR PO SCH ×2 (07:49→09:53)
[2019-06-06] MEDS: lisinopriL 5 MG TAB PO SCH ×2 (07:50→09:53)
--- NOTE | 2019-06-06 08:15 | Electrocardiogram Report ---
Test Reason : Blood Pressure : / mmHG Vent. Rate : 086 BPM Atrial Rate : 117 BPM P-R Int : 000 ms QRS Dur : 096 ms QT Int : 406 ms P-R-T Axes : 000 080 088 degrees QTc Int : 485 ms Poor data quality, interpretation may be adversely affected Atrial fibrillation Marked ST abnormality, possible anterior subendocardial injury Abnormal ECG When compared with ECG of 13-AUG-2018 07:49, Atrial fibrillation has replaced Sinus rhythm ST now depressed in Anterolateral leads Confirmed by Jeffrey Juan ([id number]) on 06/05/2019 5:47:41 PM Referred By: REFERRED SELF Confirmed By:Moe Juan
--- NOTE | 2019-06-06 08:16 | Electrocardiogram Report ---
Test Reason : Blood Pressure : / mmHG Vent. Rate : 088 BPM Atrial Rate : 092 BPM P-R Int : 000 ms QRS Dur : 112 ms QT Int : 418 ms P-R-T Axes : 000 091 062 degrees QTc Int : 505 ms Atrial fibrillation Rightward axis Nonspecific ST and T wave abnormality Prolonged QT Abnormal ECG When compared with ECG of 05-JUN-2019 11:15, (unconfirmed) ST no longer depressed in Lateral leads Nonspecific T wave abnormality now evident in Inferior leads Nonspecific T wave abnormality, improved in Lateral leads Confirmed by Jeffrey Juan ([id number]) on 06/05/2019 5:52:52 PM Referred By: REFERRED SELF Confirmed By:Moe Juan
[2019-06-06] MEDS: PRASugrel TAB 10 MG TAB PO SCH (08:33)
--- NOTE | 2019-06-06 09:46 | Cardiology Progress Note ---
Date of Service June 06, 2019 Assessment & Plan (1) ACS (acute coronary syndrome): -- Occluded OM2, post PPCI with VERENA to OM2 and OM3 2. Severe residual non-culprit vessel disease -- 95% ostial RCA, 70% mid LAD 3. Ischemic cardiomyopathy -- EF 40-45% with lateral, inferolateral wma 4. Persistent atrial fibrillation 5. RV dilation, left to right interatrial shunt 6. NSVT Chest pain free. Troponin has peaked Hemodynamically and electrically stable. No signs of heart failure No access site complications. Renal function stable. -- Plan to proceed with staged PCI of LAD, RCA today. -- Continue ASA, prasugrel -- Hold Eliquis today, resume tomorrow AM -- Continue metoprolol, add ANNALEE today -- Continue statin If stable post procedure, OK for transfer to telemetry today. Subjective Feeling well this morning. Minimal residual chest pain after procedure yesterday has resolved. No other new concerns this morning. Tele reviewed -- 2 episodes NSVT (max 10 beats overnight). Remains in AF 80- 90s. Review of Systems Review of Systems: All systems reviewed & are unremarkable except as noted in HPI & below Physical Exam Physical Exam: General: Comfortable, no acute distress Eyes: Sclerae anicteric, extraocular movements intact HENT: Oropharynx clear mucous membranes moist Lungs: Clear to auscultation bilaterally, no rhonchi or wheezes Cardiac: Regular rate and rhythm, 2/6 holosystolic at apex Abdomen: Soft, nontender, nondistended, positive bowel sounds. Neuro: Nonfocal Psych: Alert orient x3, normal affect and mood Extremities/Vascular: -- 2+ radial bilaterally -- mild ecchymosis at rt radial access site -- No edema Results & Data Vital Signs (Past 12 Hours) Vital Signs Temp Pulse Resp BP Pulse Ox 06/06/19 09:00 75 14 96 06/06/19 08:29 97.9 F 06/06/19 08:23 72 19 107/84 97 06/06/19 07:24 77 16 125/88 96 06/06/19 06:30 78 17 96 06/06/19 06:23 80 16 109/88 96 06/06/19 06:00 68 8 L 97 06/06/19 05:30 81 0 L 96 06/06/19 05:23 85 9 L 111/86 96 06/06/19 05:00 70 16 96 06/06/19 04:30 81 14 96 06/06/19 04:23 78 10 L 107/75 95 06/06/19 04:00 97.5 F L 77 17 95 06/06/19 03:30 68 10 L 96 06/06/19 03:23 76 9 L 109/84 94 06/06/19 03:00 81 21 93 06/06/19 02:30 85 16 87 L 06/06/19 02:23 81 8 L 133/92 95 06/06/19 02:00 80 19 95 06/06/19 01:30 78 19 96 06/06/19 01:23 83 18 133/98 06/06/19 01:00 85 12 94 06/06/19 00:30 85 10 L 95 06/06/19 00:23 86 6 L 135/91 06/06/19 00:00 98.4 F 84 14 98 06/05/19 23:30 83 20 95 06/05/19 23:22 84 0 L 134/91 96 06/05/19 23:00 90 15 97 06/05/19 22:30 90 17 96 06/05/19 22:23 82 16 121/90 98 06/05/19 22:00 88 27 H 98 PG Care Time/CCT Total # of Minutes Spent Total Time Spent with Patient: Total time spent is greater than 50% in coordination of care (as documented) at patient's floor/unit and/or counseling patient:
--- NOTE | 2019-06-06 12:10 | Hospitalist Progress Note ---
Date of Service June 06, 2019 Results & Data Vital Signs (Past 12 Hours) Vital Signs Temp Pulse Resp BP Pulse Ox 06/06/19 09:23 82 16 124/94 92 06/06/19 09:00 75 14 96 06/06/19 08:29 36.6 C 06/06/19 08:23 72 19 107/84 97 06/06/19 07:24 77 16 125/88 96 06/06/19 06:30 78 17 96 06/06/19 06:23 80 16 109/88 96 06/06/19 06:00 68 8 L 97 06/06/19 05:30 81 0 L 96 06/06/19 05:23 85 9 L 111/86 96 06/06/19 05:00 70 16 96 06/06/19 04:30 81 14 96 06/06/19 04:23 78 10 L 107/75 95 06/06/19 04:00 36.4 C L 77 17 95 06/06/19 03:30 68 10 L 96 06/06/19 03:23 76 9 L 109/84 94 06/06/19 03:00 81 21 93 06/06/19 02:30 85 16 87 L 06/06/19 02:23 81 8 L 133/92 95 06/06/19 02:00 80 19 95 06/06/19 01:30 78 19 96 06/06/19 01:23 83 18 133/98 06/06/19 01:00 85 12 94 06/06/19 00:30 85 10 L 95 06/06/19 00:23 86 6 L 135/91 PG Care Time/CCT Total # of Minutes Spent Total Time Spent with Patient: Total time spent is greater than 50% in coordination of care (as documented) at patient's floor/unit and/or counseling patient:
--- NOTE | 2019-06-06 14:19 | Pre Anesthesia Assessment ---
Date of Service June 06, 2019 Pre Sedation Assessment Vital Signs Temp Pulse Pulse Resp BP BP Pulse Ox 06/06/19 14:15 66 18 130/84 100 06/06/19 14:10 74 18 130/88 99 06/06/19 14:05 74 18 127/79 99 06/06/19 14:00 74 18 122/93 94 06/06/19 13:55 74 18 120/88 94 06/06/19 13:50 76 18 118/63 98 06/06/19 09:23 82 16 124/94 92 06/06/19 09:00 75 14 96 06/06/19 08:29 97.9 F 06/06/19 08:23 72 19 107/84 97 06/06/19 07:24 77 16 125/88 96 06/06/19 06:30 78 17 96 06/06/19 06:23 80 16 109/88 96 06/06/19 06:00 68 8 L 97 06/06/19 05:30 81 0 L 96 06/06/19 05:23 85 9 L 111/86 96 06/06/19 05:00 70 16 96 06/06/19 04:30 81 14 96 06/06/19 04:23 78 10 L 107/75 95 06/06/19 04:00 97.5 F L 77 17 95 06/06/19 03:30 68 10 L 96 06/06/19 03:23 76 9 L 109/84 94 06/06/19 03:00 81 21 93 06/06/19 02:30 85 16 87 L 06/06/19 02:23 81 8 L 133/92 95 06/06/19 02:00 80 19 95 06/06/19 01:30 78 19 96 06/06/19 01:23 83 18 133/98 06/06/19 01:00 85 12 94 06/06/19 00:30 85 10 L 95 06/06/19 00:23 86 6 L 135/91 06/06/19 00:00 98.4 F 84 14 98 06/05/19 23:30 83 20 95 06/05/19 23:22 84 0 L 134/91 96 06/05/19 23:00 90 15 97 06/05/19 22:30 90 17 96 06/05/19 22:23 82 16 121/90 98 06/05/19 22:00 88 27 H 98 06/05/19 21:30 86 17 96 06/05/19 21:23 100 H 20 135/93 92 06/05/19 21:00 94 H 18 96 06/05/19 20:30 87 21 96 06/05/19 20:22 93 H 7 L 138/99 97 06/05/19 20:00 98.4 F 91 H 10 L 97 06/05/19 19:54 84 13 139/97 98 06/05/19 19:30 98 H 19 98 06/05/19 19:22 94 H 16 153/105 H 96 06/05/19 19:00 88 19 96 06/05/19 18:45 92 H 18 98 06/05/19 17:00 92 H 18 98 06/05/19 16:50 91 H 18 97 06/05/19 16:40 83 10 L 99 06/05/19 16:30 93 H 15 97 06/05/19 16:22 95 H 15 142/103 H 98 06/05/19 16:20 89 17 96 06/05/19 16:10 91 H 16 97 06/05/19 16:00 97.9 F 86 16 97 06/05/19 15:30 93 H 10 L 98 06/05/19 15:22 89 18 131/97 98 06/05/19 15:15 90 20 98 06/05/19 14:56 96 H 17 131/107 H 98 06/05/19 14:25 89 20 135/90 96 Cardiovascular + irregularly irregular Respiratory normal respiratory effort, lungs clear to auscultation Pre-Sedation Airway Assessment Smoking Status: Former smoker Hx Sleep Apnea: No Hx Difficult Intubation: No Short, Thick Neck: No Thyromental Distance: > or= 3.5 Finger Breadths Oral Cavity: + WNL Mallampati Class: II ASA: ASA2 NPO Status Date of Last Intake of Fluids: 06/06/19 Time of Last Intake of Fluids: 07:00 Date of Last Intake of Solid Food: 06/06/19 Time of Last Intake of Solid Foods: 07:00 Last Intake of Solids Comment: apple at 07 Procedure Planning Contraindications for Sedation: none Current Medications Reviewed: Yes Notes The planned sedation has been discussed with the patient. Informed Consent was obtained. I have identified the patient, determined the appropriateness of sedation and have assessed the patient immediately prior to the procedure. All medicine(s) and interventions are by my order.
--- NOTE | 2019-06-06 14:20 | Post Anesthesia Assessment ---
Date of Service June 06, 2019 Post Sedation Assessment Vital Signs Temp Pulse Pulse Resp BP BP Pulse Ox 06/06/19 14:15 66 18 130/84 100 06/06/19 14:10 74 18 130/88 99 06/06/19 14:05 74 18 127/79 99 06/06/19 14:00 74 18 122/93 94 06/06/19 13:55 74 18 120/88 94 06/06/19 13:50 76 18 118/63 98 06/06/19 09:23 82 16 124/94 92 06/06/19 09:00 75 14 96 06/06/19 08:29 97.9 F 06/06/19 08:23 72 19 107/84 97 06/06/19 07:24 77 16 125/88 96 06/06/19 06:30 78 17 96 06/06/19 06:23 80 16 109/88 96 06/06/19 06:00 68 8 L 97 06/06/19 05:30 81 0 L 96 06/06/19 05:23 85 9 L 111/86 96 06/06/19 05:00 70 16 96 06/06/19 04:30 81 14 96 06/06/19 04:23 78 10 L 107/75 95 06/06/19 04:00 97.5 F L 77 17 95 06/06/19 03:30 68 10 L 96 06/06/19 03:23 76 9 L 109/84 94 06/06/19 03:00 81 21 93 06/06/19 02:30 85 16 87 L 06/06/19 02:23 81 8 L 133/92 95 06/06/19 02:00 80 19 95 06/06/19 01:30 78 19 96 06/06/19 01:23 83 18 133/98 06/06/19 01:00 85 12 94 06/06/19 00:30 85 10 L 95 06/06/19 00:23 86 6 L 135/91 06/06/19 00:00 98.4 F 84 14 98 06/05/19 23:30 83 20 95 06/05/19 23:22 84 0 L 134/91 96 06/05/19 23:00 90 15 97 06/05/19 22:30 90 17 96 06/05/19 22:23 82 16 121/90 98 06/05/19 22:00 88 27 H 98 06/05/19 21:30 86 17 96 06/05/19 21:23 100 H 20 135/93 92 06/05/19 21:00 94 H 18 96 06/05/19 20:30 87 21 96 06/05/19 20:22 93 H 7 L 138/99 97 06/05/19 20:00 98.4 F 91 H 10 L 97 06/05/19 19:54 84 13 139/97 98 06/05/19 19:30 98 H 19 98 06/05/19 19:22 94 H 16 153/105 H 96 06/05/19 19:00 88 19 96 06/05/19 18:45 92 H 18 98 06/05/19 17:00 92 H 18 98 06/05/19 16:50 91 H 18 97 06/05/19 16:40 83 10 L 99 06/05/19 16:30 93 H 15 97 06/05/19 16:22 95 H 15 142/103 H 98 06/05/19 16:20 89 17 96 06/05/19 16:10 91 H 16 97 06/05/19 16:00 97.9 F 86 16 97 06/05/19 15:30 93 H 10 L 98 06/05/19 15:22 89 18 131/97 98 06/05/19 15:15 90 20 98 06/05/19 14:56 96 H 17 131/107 H 98 06/05/19 14:25 89 20 135/90 96 Recovery Score Activity: Moves 4 extremities Respiration: Deep Breath/Cough Circulation: +/-20% PreAnes Value Consciousness: Fully Awake Oxygen Saturation: > 92% On Room Air Post Anesthesia Score: 10 Discharge Sedation Level of Care: Fast Track Phase II Post Sedation Plan On clinical assessment, the patient appears to have tolerated the sedation without complications. Patient is recovering as anticipated. Patient will continue to be monitored by nursing and may be discharged when sedation discharge criteria are met per below protocol. Upon Completions of procedure up to 15 minutes continue every 5 minute vital signs and the P.A.R. score; then discharge to a Phase I or Fast Track to Phase II per the following guidelines: * Discharge Patient to appropriate Phase II area if PAR is 8 or greater or return to pre- procedure baseline. The post - procedure orders will be as directed. * If PAR score is less than 8 or not return to pre-procedure baseline then patient will follow Phase I monitoring till PAR is reached for Phase II. The Phase I may be done in procedure room or may call to secure a Phase I area. * If naloxone or flumazenil are used for reversal, hold in Phase I for continued monitoring from when last reversal dose was given for a minimum of 60 minutes or longer pending the nurse and/or physician discretion of patient condition before discharge to Phase II. Please call the Sedation Physician to re-evaluate and complete post-note for discharge to Phase II area. Do NOT discharge from procedure sedation or Phase 1 until post- sedation evaluation note is complete by procedure /sedation MD Sedation Discharge Instructions to be given to the patient at discharge to home.
--- NOTE | 2019-06-06 14:35 | Cardiac Catheterization ---
ACC Data: Order Builder Loader Cardiac Status Clinical evaluation leading to the procedure CAD Presenation: Non STEMI Anginal Classification: CCS IV Heart Failure: No Cardiogenic Shock within 24 Hours: No Cardiac Arrest within 24 Hours: No Imaging Studies Past 6 Months: Yes Stress Studies Past 6 Months: No Diagnostic Physicians Name: Jeffrey Ayala MD Status: Elective Closure Device Percutaneous Entry Location: Radial Closure Device: Radial Band Recommendations: PCI without planned CABG PCI Indication: Staged PCI Lesion Segment Name: mid LAD Culprit Artery: No Stenosis Prior to Rx (%): 70 Chronic Total Occlusion: No IVUS: No FFR: Yes Ratio: greater than 0.75% Pre-Procedure FELA Flow: 3 Previously Treated Lesion: No Lesion Complexity: Non-High/Non-C Lesion Length (mm): 20 Thrombus Present: No Bifurcation Lesion: No Guidewire Across Lesion: Stenosis Post-Procedure (%): 0 Post-Procedure FELA Flow: 3 Devices(s) Deployed: Yes Yes Intraprocedure Events Significant Disection: No Perforation: No Cardiac Cath Procedure Full Procedure Date June 06, 2019 Pre-Procedure Diagnosis Pre-Procedure Diagnosis: Non STEMI AUC Score AUC Score: 7 Post-Procedure Diagnosis Post-Procedure Diagnosis: Severe CAD and Successful PCI Procedure(s) Performed Procedure(s) Performed: Left Heart Cath, Drug Eluting Stent, Ultrasound Guided Vascular Access and IVUS Cartography Technician Jeffrey Ayala MD Managing Partner [employer] [place] [employer](s) Abi Estimated Blood Loss Estimated Blood Loss: 15 Medication(s) Medication(s): Fentanyl, Heparin, Lidocaine 1%, Nicardipine, Nitroglycerin and Versed Summary of Findings Indication: Staged PCI of mid LAD after Primary PCI for acute OM2 occlusion yesterday. Access: 6 Fr slender right radial artery under ultrasound guidance Catheters: EBU 4 guide, JR4 guide Findings: For full details of patient's coronary angiography please see cath report dictated on 06/05/2019. Briefly in addition to acutely occluded OM 2 patient was also found to have severe mid LAD disease (FFR 0.76). Patient brought back for staged PCI. Patient was also noted to have severe ostial RCA disease and plan for further assessment. IVUS of ostial RCA RCA cannulated with JR4 guide BMW wire placed into distal RCA [place] IVUS catheter placed into mid RCA IVUS pullback revealed mild nonobstructive disease in proximal, ostial segment. No stenosis >30%. Wire, catheter removed and no apparent coronary complications. Was noted to have a 60 to 70% ostial right PDA stenosis. -- PCI mid LAD-- Antithrombotic therapy: Heparin Procedure: Left main cannulated with EBU 4.0 guide BMW wire placed into distal LAD Mid LAD dilated with 2.5 balloon Proximal to mid LAD stented with 3.0 x 26 mm Jakob drug-eluting stent Stent postdilated with stent balloon IC vasodilators administered for spasm Post procedure FELA 3 flow, stent well expanded with minimal residual stenosis and no apparent cardiac complications. Arterial Closure: TR band Summary: 1. Mild non-obstructive ostial RCA disease by IVUS 2. 60-70% ostial R-PDA disease 3. Successful PCI of mid LAD with single drug-eluting stent (3.0 x 26 mm Jakob). Recommendations: Return to telemetry for continued monitoring Transition Prasugrel to clopidogrel tomorrow a.m. Resume Eliquis tomorrow Home on triple therapy with Eliquis, clopidogrel, aspirin for 1 month then continue on Eliquis/clopidogrel alone for at least 1 year. Medically manage moderate ostial PDA disease Cardiac rehab Hemodynamics Rest Ao:: 96/65/75 Final Ao: 133/75/98 LV: 126/15 Recommendations Recommendations: PCI without planned CABG Specimens Specimens: None Radiation Exposure (mGy) 1662 Contrast (mls) 125 Fluids (cc crystalloids) Fluids (cc crystalloids): 125 Drains Drains: None Anesthesia Moderate Procedural Complication(s) None Disposition ICU I attest to the content of the Intraoperative Record and any orders documented therein. Any exceptions are noted below. [facility] [place] Procedure Codes Cardiac Catheterization Procedure 1: Cardiovascular Cath Procedures: 43830 Left Heart Cath (+/-LV) Therapeutic Services & Ancillary Proc Procedure 1: Cardiovascular Tx and Anc Procedures: 57966 Ultrasonic Guidance Vascular Access Procedure 2: Cardiovascular Tx and Anc Procedures: 34210 IV Ultrasound (Coronary or Graft) Moderate Sedation Procedure 1: Sedation/Anesthesia: 97979 Mod Sedation by the same physician;Init15 Min Child Age 5 & Up Stenting Procedure 1: Cardiovascular Stent Procedures: 36847 Perc transcatheter placement of in tracoronary stent(s), with ang PG Care Time/CCT Total # of Minutes Spent Total Time Spent with Patient: Total time spent is greater than 50% in coordination of care (as documented) at patient's floor/unit and/or counseling patient:
[2019-06-06] MEDS: SODIUM CHLORIDE 0.9% 500 ML IV SCH ×2 (14:54)
[2019-06-06] MEDS: APIXABAN 5 MG TABLET PO SCH (15:06)
[2019-06-06] MEDS ORDERED: METOPROLOL TARTRATE 25 MG TAB PO ONE (16:54)
[2019-06-06 17:28] LABS: Magnesium 2.1 mg/dl (1.8-2.4); Phosphorus 2.8 mg/dl (2.5-4.9)
--- NOTE | 2019-06-06 20:43 | Hospitalist Progress Note ---
Date of Service June 06, 2019 Assessment & Plan (1) STEMI (ST elevation myocardial infarction): Non STEMI -Admitted to ICU post cardiac cath -Patient presented to ED with reports of exertional shortness of breath and chest pain -EKG showed subtle ST elevations in the inferior leads with ST depressions in the anterior leads, patient taken emergently to cardiac Deputy Sheriff Bailiff -s/p one VERENA to OM2 and one VERENA to OM3; cardiac cath also showed 95% ostial RCA and 70% mid LAD -Per cardiology, "Plan on staged PCI of RCA, LAD either this hospitalization or in the next week or 2 as an outpatient." - decided for cardiac cath today (06/06/2019), now pt is s/p one VERENA in mid LAD -Outpatient dry kiln operator helper is Dr. Sotelo -Loaded with Prasugrel 60 mg during first cath, transition to clopidogrel prior to discharge - cont. prasugrel and ASA today - hold Eliquis today, resume tomorrow -Home on triple therapy with Eliquis, clopidogrel, aspirin for 1 month then continue on Eliquis/clopidogrel alone for at least 1 year. -Troponin peaked -Resting echo -Beta-enid and ANNALEE inhibitor started, uptitrate as BP allows -High intensity statin (2) Paroxysmal atrial fibrillation: -Currently in atrial fibrillation with rates in the 90s -Prior to hospitalization, was rate controlled on diltiazem which was discontinued in favor of metoprolol as above -Anticoagulated on Eliquis, resume tomorrow per interventional cardiology (3) Anxiety: -Continue bupropion (4) DVT prophylaxis: -Resuming Eliquis tomorrow Subjective Patient is currently lying in bed, in no acute distress. He underwent another cardiac cath today, with Dr. Ayala, status post stent placement in LAD. Currently denies any chest pain, palpitations, shortness of breath, abdominal pain, nausea or vomiting. NSVT during my exam Review of Systems Review of Systems: All systems reviewed & are unremarkable except as noted in HPI & below Constitutional: no fever and no chills Respiratory: no cough, no dyspnea and no pain on inspiration Cardiovascular: no chest pain, no palpitations and no edema Gastrointestinal: no abdominal pain, no nausea and no vomiting Physical Exam Physical Exam: Constitutional: elderly male laying in bed, in NAD Eyes: PERRL, EOMI, conjunctivae normal, anicteric sclerae ENMT: external ear and nose normal, oropharynx normal Respiratory: normal respiratory effort, lungs clear to auscultation, no wheezing, rhonchi or crackles Cardiovascular: Rate/Rhythm: + irregularly irregular, soft syst. murm. at apex, Vessels: normal peripheral pulses Extremities: no edema Gastrointestinal (Abdomen): normal bowel sounds, soft, nontender, no hepatosplenomegaly Musculoskeletal: no cyanosis or clubbing, extremities motor strength 5/5 Right radial cardiac cath site edematous with mild ecchymosis, CSM checks intact to right hand Skin: no rashes, warm and dry Neurologic: PERRL, EOMI, accommodation nl, no face palsy, no dysarthria, speech fluent, moves all extremities spontaneously Psychiatric: A+Ox3, euthymic affect Results & Data Vital Signs (Past 12 Hours) Vital Signs Temp Pulse Pulse Resp BP BP Pulse Ox 06/06/19 20:30 67 9 L 98 06/06/19 20:28 88 10 L 113/68 98 06/06/19 20:00 37.1 C 80 19 97 06/06/19 19:58 75 17 104/71 96 06/06/19 19:30 88 19 98 06/06/19 19:27 89 21 107/73 95 06/06/19 19:00 83 16 97 06/06/19 18:45 80 22 96 06/06/19 18:28 83 23 124/88 97 06/06/19 18:00 80 15 95 06/06/19 17:58 67 8 L 98/65 L 96 06/06/19 17:28 77 22 101/83 97 06/06/19 17:01 84 14 97 06/06/19 16:59 73 14 113/67 97 06/06/19 16:28 67 22 119/83 96 06/06/19 15:55 87 18 119/84 98 06/06/19 15:40 65 16 118/90 98 06/06/19 15:35 36.7 C 06/06/19 15:30 77 15 98 06/06/19 15:26 84 27 H 119/98 98 06/06/19 15:15 99 H 14 98 06/06/19 15:11 77 14 114/77 97 06/06/19 15:00 71 18 97 06/06/19 14:45 76 11 L 95 06/06/19 14:40 75 24 104/85 94 06/06/19 14:20 73 18 116/83 100 06/06/19 14:15 66 18 130/84 100 06/06/19 14:10 74 18 130/88 99 06/06/19 14:05 74 18 127/79 99 06/06/19 14:00 74 18 122/93 94 06/06/19 13:55 74 18 120/88 94 06/06/19 13:50 76 18 118/63 98 06/06/19 09:23 82 16 124/94 92 06/06/19 09:00 75 14 96 Laboratory Results 06/06/19 06/06/19 06/06/19 Range/Units 17:02 16:59 13:12 WBC (4.8-10.8) K/uL RBC (4.7-6.1) M/uL Hgb (14.0-18.0) g/dL Hct (42-52) % MCV (80-100) fL MCH (25-34) pg MCHC (32-36) g/dL RDW Std Deviation (36.4-46.3) fL RDW Coeff of Roxana (11.5-14.5) % Plt Count (130-400) K/uL MPV (7.4-10.4) fL Immature Gran % (Auto) % Neut % (Auto) % Lymph % (Auto) % Saunders % (Auto) % Eos % (Auto) % Baso % (Auto) % Immature Gran # (Auto) (0.00-0.02) K/uL Neut # (Auto) (1.4-6.5) K/uL Lymph # (Auto) (1.2-3.4) K/uL Saunders # (Auto) (0.11-0.59) K/uL Eos # (Auto) (0-0.5) K/uL Baso # (Auto) (0-0.2) K/uL Activ Coag Time Kaolin 252 H (94-140) SECONDS Sodium (136-145) mmol/L Potassium (3.5-5.1) mmol/L Chloride (98-107) mmol/L Carbon Dioxide (21-32) mmol/L Anion Gap (3-11) BUN (7-18) mg/dl Creatinine (0.6-1.4) mg/dl Est Cr Clr Drug Dosing ml/min Est GFR ( Amer) Est GFR (Non-Af Amer) BUN/Creatinine Ratio (10-20) Glucose (70-99) mg/dl POC Glucose 94 (70-99) Estimat Average Glucose mg/dl Hemoglobin A1c (4.5-5.6) % Calcium (8.5-10.1) mg/dl Phosphorus 2.8 (2.5-4.9) mg/dl Magnesium 2.1 (1.8-2.4) mg/dl Troponin I (0-0.045) ng/ml Triglycerides (0-150) mg/dl Cholesterol (0-200) mg/dl LDL Cholesterol, Calc mg/dl VLDL Cholesterol, Calc mg/dl HDL Cholesterol mg/dl Cholesterol/HDL Ratio 06/06/19 06/06/19 06/06/19 Range/Units 04:27 04:27 04:27 WBC 10.81 H (4.8-10.8) K/uL RBC 4.51 L (4.7-6.1) M/uL Hgb 14.8 (14.0-18.0) g/dL Hct 43.7 (42-52) % MCV 96.9 (80-100) fL MCH 32.8 (25-34) pg MCHC 33.9 (32-36) g/dL RDW Std Deviation 46.3 (36.4-46.3) fL RDW Coeff of Roxana 13.1 (11.5-14.5) % Plt Count 200 (130-400) K/uL MPV 9.7 (7.4-10.4) fL Immature Gran % (Auto) 0.2 % Neut % (Auto) 68.1 % Lymph % (Auto) 22.1 % Saunders % (Auto) 7.8 % Eos % (Auto) 1.6 % Baso % (Auto) 0.2 % Immature Gran # (Auto) 0.02 (0.00-0.02) K/uL Neut # (Auto) 7.37 H (1.4-6.5) K/uL Lymph # (Auto) 2.39 (1.2-3.4) K/uL Saunders # (Auto) 0.84 H (0.11-0.59) K/uL Eos # (Auto) 0.17 (0-0.5) K/uL Baso # (Auto) 0.02 (0-0.2) K/uL Activ Coag Time Kaolin (94-140) SECONDS Sodium 137 (136-145) mmol/L Potassium 4.0 (3.5-5.1) mmol/L Chloride 108 H (98-107) mmol/L Carbon Dioxide 25 (21-32) mmol/L Anion Gap 4.0 (3-11) BUN 13 (7-18) mg/dl Creatinine 1.09 (0.6-1.4) mg/dl Est Cr Clr Drug Dosing 69.2 ml/min Est GFR ( Amer) 77.1 Est GFR (Non-Af Amer) 66.5 BUN/Creatinine Ratio 11.6 (10-20) Glucose 105 H (70-99) mg/dl POC Glucose (70-99) Estimat Average Glucose 117 mg/dl Hemoglobin A1c 5.7 H (4.5-5.6) % Calcium 8.6 (8.5-10.1) mg/dl Phosphorus (2.5-4.9) mg/dl Magnesium (1.8-2.4) mg/dl Troponin I 37.000 H* (0-0.045) ng/ml Triglycerides 105 (0-150) mg/dl Cholesterol 144 (0-200) mg/dl LDL Cholesterol, Calc 76 mg/dl VLDL Cholesterol, Calc 21 mg/dl HDL Cholesterol 47 mg/dl Cholesterol/HDL Ratio 3 06/06/19 Range/Units 00:46 WBC (4.8-10.8) K/uL RBC (4.7-6.1) M/uL Hgb (14.0-18.0) g/dL Hct (42-52) % MCV (80-100) fL MCH (25-34) pg MCHC (32-36) g/dL RDW Std Deviation (36.4-46.3) fL RDW Coeff of Roxana (11.5-14.5) % Plt Count (130-400) K/uL MPV (7.4-10.4) fL Immature Gran % (Auto) % Neut % (Auto) % Lymph % (Auto) % Saunders % (Auto) % Eos % (Auto) % Baso % (Auto) % Immature Gran # (Auto) (0.00-0.02) K/uL Neut # (Auto) (1.4-6.5) K/uL Lymph # (Auto) (1.2-3.4) K/uL Saunders # (Auto) (0.11-0.59) K/uL Eos # (Auto) (0-0.5) K/uL Baso # (Auto) (0-0.2) K/uL Activ Coag Time Kaolin (94-140) SECONDS Sodium (136-145) mmol/L Potassium (3.5-5.1) mmol/L Chloride (98-107) mmol/L Carbon Dioxide (21-32) mmol/L Anion Gap (3-11) BUN (7-18) mg/dl Creatinine (0.6-1.4) mg/dl Est Cr Clr Drug Dosing ml/min Est GFR ( Amer) Est GFR (Non-Af Amer) BUN/Creatinine Ratio (10-20) Glucose (70-99) mg/dl POC Glucose (70-99) Estimat Average Glucose mg/dl Hemoglobin A1c (4.5-5.6) % Calcium (8.5-10.1) mg/dl Phosphorus (2.5-4.9) mg/dl Magnesium (1.8-2.4) mg/dl Troponin I 44.800 H* (0-0.045) ng/ml Triglycerides (0-150) mg/dl Cholesterol (0-200) mg/dl LDL Cholesterol, Calc mg/dl VLDL Cholesterol, Calc mg/dl HDL Cholesterol mg/dl Cholesterol/HDL Ratio Medications Administered Current Inpatient Medications Apixaban (Eliquis) 5 mg PO BID [facility] Stop: 07/06/19 08:59 Last Admin: 06/06/19 15:06 Dose: Not Given Documented by: Aspirin (Ecotrin Ectab) 81 mg PO QAM [facility] Stop: 07/06/19 08:59 Last Admin: 06/06/19 07:49 Dose: 81 mg Documented by: Atorvastatin Calcium (Lipitor) 80 mg PO QAM [facility] Stop: 07/06/19 08:59 Last Admin: 06/06/19 07:49 Dose: 80 mg Documented by: Bupropion HCl (Wellbutrin-Xl) 150 mg PO QAM [facility] Stop: 07/06/19 08:59 Last Admin: 06/06/19 09:53 Dose: 150 mg Documented by: [facility] [place]: 07/06/19 08:59 Last Admin: 06/06/19 09:53 Dose: 5 mg Documented by: Metoprolol Tartrate (Lopressor) 25 mg PO BID [facility] Stop: 07/05/19 20:59 Last Admin: 06/06/19 07:49 Dose: 25 mg Documented by: Miscellaneous (I[facility] Protocol For Hyperglycemia) 1 ea N/A PRN PRN; Protocol PRN Reason: Hyperglycemia Protocol Stop: 06/07/19 13:02 Multivitamins (Multivitamin Tab) 1 tab PO [facility] [place] Stop: 07/06/19 08:59 Last Admin: 06/06/19 09:53 Dose: 1 tab Documented by: Nitroglycerin (Nitrostat) 0.4 mg SL PRN PRN PRN Reason: Chest Pain Stop: 07/05/19 12:57 Ondansetron HCl (Zofran) 4 mg IV Q6H PRN PRN Reason: Nausea And Vomiting Stop: 07/05/19 12:57 [facility] ([facility]ffient) [facility] [place]: 07/06/19 08:59 Last Admin: 06/06/19 08:33 Dose: 10 mg Documented by:
[2019-06-07 05:02] LABS: Basophils # (auto) 0.03 K/uL (0-0.2); Basophils % (auto) 0.3 %; Hematocrit (blood only) 42.6 % (42-52); Hemoglobin 13.9 g/dL (14.0-18.0); Immature Granulocytes # (auto) 0.02 K/uL (0.00-0.02); Immature Granulocytes % (auto) 0.2 %; Lymphocytes % (auto) 21.4 %; Mean Corpuscular Hemoglobin 32.3 pg (25-34); Mean Corpuscular Hgb Conc 32.6 g/dL (32-36); Mean Corpuscular Volume 99.1 fL (80-100); Mean Platelet Volume 9.9 fL (7.4-10.4); Monocytes # (auto) 0.87 K/uL (0.11-0.59); Monocytes % (auto) 8.9 %; Neutrophils % (auto) 67.2 %; Platelet Count 198 K/uL (130-400); RDW Coefficient of Variation 12.9 % (11.5-14.5); RDW Standard Deviation 46.3 fL (36.4-46.3); White Blood Count 9.82 K/uL (4.8-10.8)
[2019-06-07 05:38] LABS: BUN Creatinine Ratio 14.8 (10-20); Calcium 8.6 mg/dl (8.5-10.1); Est GFR (African American) 78.8; Phosphorus 3.2 mg/dl (2.5-4.9); Potassium 4.1 mmol/L (3.5-5.1)
--- NOTE | 2019-06-07 06:35 | Critical Care Progress Note ---
Date of Service June 07, 2019 Assessment & Plan (1) Paroxysmal atrial fibrillation: Reason Critically Ill: 73 year old man status post cath and stent placement x3 Neuro: Intact, no deficits, cam icu negative Respiratory: No concerns, breathing comfortably on room air Cardiovascular Patient with two branches of LCA stented 1/2 one of which was culprit lesion 1/3 patient went back for LAD stenting x1 and investigation of RCA ostial lesion RCA nonobstructive and will be managed medically Will resume eliquis today plan is for discharge on eliquis, clopidgrel and ASA for 1 month and stopping ASA and continuing with eliquis and clopidogrel thereafter Start beta enid, ANNALEE and high intensity statin therapy Cardiac rehab on d/c Atrial fibrillation rate controlled at the moment Had an episode of two non sustained runs of v tach, asymptomatic no hemodynamic changes Gave an extra dose of metoprolol yesterday Electrolytes WNL GI: No concerns at this time Renal: Creatinine improved to 1.07 Endocrine No concerns at this time will continue to monitor Blood sugars Psych: Continue bupropion for MANUEL Code status Full code Stable for step down today (2) Anxiety: (3) DVT prophylaxis: (4) NSTEMI (non-ST elevated myocardial infarction): Supervising Physician Co-Signing Physician Notes Dr. Torre was resident physician during care of patient. I separately evaluated patient for cabrera portions of the history and the exam. I was present during the critical portion of medical decision making, and I discussed the case with the resident. I generally agree with the findings and plan. Patient doing well stable for downgrade out of ICU. Subjective Stan Zapien is lying comfortably in bed this morning. He has no acute concerns other than his right hand which was swollen and ecchymotic following catheterization in right radial artery. The hand is far less swollen and discolored and his sensation is improved. He denies any shortness of breath, palpitation, chest pain, presyncope, abdominal pain or distension, GI issues, or any other problems. Review of Systems Review of Systems: All systems reviewed & are unremarkable except as noted in HPI & below Physical Exam Physical Exam: Constitutional: Well appearing 73 year old man appearing younger than stated age resting comfortably in bed. No apparent distress Eyes: EOMMI, Respiratory: Chest expansion equal, no increased work of breathing, no murmurs rubs skips or gallops Cardiovascular: Heart sounds dual, no murmurs rubs skips or gallops, Irregularly irregular rhythm, good peripheral pulses GI: Abdomen soft/ nontender, no masses MSK: NAD Skin: Pressure bands on right arm for right radial artery access for cath. Hand swollen and discolored, sensation improved, somewhat painful Results & Data Vital Signs (Past 12 Hours) Vital Signs Temp Pulse Resp BP Pulse Ox 06/07/19 06:00 69 8 L 96 06/07/19 05:58 65 9 L 80/56 L 96 06/07/19 05:44 79 25 H 87/57 L 96 06/07/19 05:30 76 19 98 06/07/19 05:02 63 16 86/46 L 94 06/07/19 05:01 68 18 94 06/07/19 04:59 79 19 74/49 L 94 06/07/19 04:31 65 20 93 06/07/19 04:29 76 20 93/41 L 92 06/07/19 04:00 36.5 C 74 14 95 06/07/19 03:58 67 14 94/66 L 92 06/07/19 03:30 84 20 92 06/07/19 03:28 77 19 100/77 95 06/07/19 03:00 78 0 L 94 06/07/19 02:58 76 0 L 107/64 95 06/07/19 02:30 74 8 L 96 06/07/19 02:28 79 8 L 104/73 96 06/07/19 02:00 71 20 94 06/07/19 01:58 74 18 117/75 93 06/07/19 01:30 71 8 L 95 06/07/19 01:28 75 7 L 117/64 97 06/07/19 01:18 85 9 L 108/68 97 06/07/19 01:00 97 H 26 H 89 L 06/07/19 00:59 92 H 22 93 06/07/19 00:30 63 9 L 95 06/07/19 00:28 71 7 L 108/79 95 06/07/19 00:00 37.4 C 76 7 L 96 06/06/19 23:59 75 9 L 112/80 95 06/06/19 23:30 78 19 96 06/06/19 23:29 85 19 133/92 96 06/06/19 23:00 79 21 95 06/06/19 22:58 76 22 114/78 95 06/06/19 22:30 90 17 96 06/06/19 22:28 78 17 128/84 97 06/06/19 22:00 81 20 96 06/06/19 21:58 82 20 102/74 97 06/06/19 21:30 87 10 L 97 06/06/19 21:28 71 10 L 103/73 97 06/06/19 21:00 69 16 96 06/06/19 20:58 79 13 104/71 96 06/06/19 20:30 67 9 L 98 06/06/19 20:28 88 10 L 113/68 98 06/06/19 20:00 37.1 C 80 19 97 06/06/19 19:58 75 17 104/71 96 06/06/19 19:30 88 19 98 06/06/19 19:27 89 21 107/73 95 06/06/19 19:00 83 16 97 06/06/19 18:45 80 22 96 Resident Activity Tracking Resident Involvement: Resident Care Provided Care Provided: Adult Hospital Medicine
[2019-06-07] MEDS: ASPIRIN 81 MG ECTAB PO SCH (07:33)
[2019-06-07] MEDS: MULTIVITAMIN TAB PO SCH (07:34)
[2019-06-07] MEDS: METOPROLOL TARTRATE 25 MG TAB PO SCH ×2 (07:36→21:07)
[2019-06-07] MEDS: PRASugrel TAB 10 MG TAB PO SCH (07:36)
[2019-06-07] MEDS: BuPROPion XL 150 MG TABCR PO SCH (07:36)
[2019-06-07] MEDS: ATORVASTATIN 40 MG TAB PO SCH (07:36)
[2019-06-07] MEDS: lisinopriL 5 MG TAB PO SCH (07:37)
--- NOTE | 2019-06-07 07:50 | Electrocardiogram Report ---
Test Reason : Blood Pressure : / mmHG Vent. Rate : 075 BPM Atrial Rate : 300 BPM P-R Int : 000 ms QRS Dur : 108 ms QT Int : 474 ms P-R-T Axes : 000 101 245 degrees QTc Int : 529 ms Atrial fibrillation Rightward axis Low voltage QRS Prolonged QT Abnormal ECG When compared with ECG of 05-JUN-2019 13:42, ST no longer elevated in Inferior leads Non-specific change in ST segment in Lateral leads T wave inversion now evident in Inferior leads T wave inversion now evident in Anterior leads Confirmed by Jeffrey Juan ([id number] on 06/07/2019 7:50:23 AM Referred By: REFERRED SELF Confirmed By:Moe Juan
[2019-06-07] MEDS: APIXABAN 5 MG TABLET PO SCH ×2 (09:04→21:06)
--- NOTE | 2019-06-07 15:16 | Cardiology Progress Note ---
Date of Service June 07, 2019 Assessment & Plan (1) ACS (acute coronary syndrome): -- Occluded OM2, post PPCI with VERENA to OM2 and OM3 2. Severe residual non-culprit vessel disease -- 70% mid LAD post VERENA. Moderate ostial R-PDA disease 3. Ischemic cardiomyopathy -- EF 40-45% with lateral, inferolateral wma 4. Persistent atrial fibrillation 5. RV dilation, left to right interatrial shunt 6. NSVT Remains chest pain free. No additional NSVT since yesterday. Renal function stable. Access site hematoma - distally neurovascularly intact. -- Continue ASA, prasugrel --> transition to clopidogrel tomorrow -- Continue Eliquis. -- Continue metoprolol, ANNALEE - if hypotensive overnight hold/reduce lisinopril on discharge -- Continue statin Up walking halls today, transfer to telemetry. Ok with discharge tomorrow AM if no new issues. Subjective Feeling well. No chest pain. Right arm tender. No other new complaints. Tele reviewed -- episode of NSVT yesterday evening Review of Systems Review of Systems: All systems reviewed & are unremarkable except as noted in HPI & below Physical Exam Physical Exam: General: Comfortable, no acute distress Eyes: Sclerae anicteric, extraocular movements intact Lungs: Clear to auscultation bilaterally, no rhonchi or wheezes Cardiac: Irregularly irregular, 2/6 holosystolic murmur Abdomen: Soft, nontender, nondistended, positive bowel sounds. Neuro: Nonfocal Psych: Alert orient x3, normal affect and mood Extremities/Vascular: -- RT radial intact, +ecchymosis/hematoma, intact distal sensation/cap refill -- No edema Results & Data Vital Signs (Past 12 Hours) Vital Signs Temp Pulse Resp BP Pulse Ox 06/07/19 14:30 70 28 H 95 06/07/19 14:00 71 27 H 95 06/07/19 13:30 66 12 96 06/07/19 13:05 79 19 06/07/19 12:31 67 10 L 96 06/07/19 12:29 75 7 L 92/61 L 96 06/07/19 12:01 59 L 14 96 06/07/19 11:59 98.6 F 72 21 106/65 95 06/07/19 11:53 77 20 106/70 97 06/07/19 11:30 77 20 06/07/19 11:00 58 L 14 06/07/19 10:30 78 14 06/07/19 10:00 84 15 06/07/19 09:30 72 16 06/07/19 09:00 72 18 06/07/19 08:30 79 12 06/07/19 08:03 84 22 96 06/07/19 07:39 99.0 F 79 21 109/69 95 06/07/19 07:30 80 22 06/07/19 07:00 65 16 93 06/07/19 06:00 69 8 L 96 06/07/19 05:58 65 9 L 80/56 L 96 06/07/19 05:44 79 25 H 87/57 L 96 06/07/19 05:30 76 19 98 06/07/19 05:02 63 16 86/46 L 94 06/07/19 05:01 68 18 94 06/07/19 04:59 79 19 74/49 L 94 06/07/19 04:31 65 20 93 06/07/19 04:29 76 20 93/41 L 92 06/07/19 04:00 97.7 F 74 14 95 06/07/19 03:58 67 14 94/66 L 92 06/07/19 03:30 84 20 92 06/07/19 03:28 77 19 100/77 95 PG Care Time/CCT Total # of Minutes Spent Total Time Spent with Patient: Total time spent is greater than 50% in coordination of care (as documented) at patient's floor/unit and/or counseling patient:
--- NOTE | 2019-06-07 15:45 | Billing Data ---
Date of Service June 05, 2019 Coding Level of Care Code 22267 Inpt Consult Level 4
--- NOTE | 2019-06-07 15:45 | Billing Data ---
Date of Service June 06, 2019 Coding Level of Care Code 53767 Subseq Hosp Care Lvl 2
--- NOTE | 2019-06-07 15:45 | Billing Data ---
Date of Service June 07, 2019 Coding Level of Care Code 87611 Subseq Hosp Care Lvl 2
--- NOTE | 2019-06-07 21:41 | Hospitalist Progress Note ---
Date of Service June 07, 2019 Assessment & Plan (1) STEMI (ST elevation myocardial infarction): ACS Non STEMI NSVT -Admitted to ICU post cardiac cath -Patient presented to ED with reports of exertional shortness of breath and chest pain -EKG showed subtle ST elevations in the inferior leads with ST depressions in the anterior leads, patient taken emergently to cardiac Heel L[facility] Paster -s/p one VERENA to OM2 and one VERENA to OM3; cardiac cath also showed 95% ostial RCA and 70% mid LAD -Per cardiology, "Plan on staged PCI of RCA, LAD either this hospitalization or in the next week or 2 as an outpatient." - decided for cardiac cath yesterday (06/06/2019), now pt is s/p one VERENA in mid LAD -Outpatient pharmaceutical representative is Dr. Sotelo -Loaded with Prasugrel 60 mg during first cath, transition to clopidogrel prior to discharge (START TOMORROW 06/08) - STOP prasugrel today (06/07), cont. ASA - cont. Eliquis BID -Home on triple therapy with Eliquis, clopidogrel, aspirin for 1 month then continue on Eliquis/clopidogrel alone for at least 1 year. -Troponin peaked -Resting echo: EF 40-45%, with lateral, inferolateral wall motion abnormality, RV dilation, left to right interatrial shunt -Beta-enid and ANNALEE inhibitor started, uptitrate as BP allows -High intensity statin started (2) Paroxysmal atrial fibrillation: -Currently in atrial fibrillation with rates in the 70-80s -Prior to hospitalization, was rate controlled on diltiazem which was dis continued in favor of metoprolol as above -Anticoagulated on Eliquis, resume tomorrow per interventional cardiology (3) Anxiety: -Continue bupropion (4) DVT prophylaxis: -Resuming Eliquis tomorrow Subjective Patient is lying in bed, in no acute distress. Daughter at the bedside. Patient denies any chest pain, palpitations, shortness of breath, abdominal pain, nausea or vomiting. Says that he was walking in hallways today and did not experience any shortness of breath or chest pain on exertion. Review of Systems Review of Systems: All systems reviewed & are unremarkable except as noted in HPI & below Constitutional: no fever and no chills Respiratory: no cough, no dyspnea and no pain on inspiration Cardiovascular: no chest pain and no palpitations Gastrointestinal: no abdominal pain, no nausea and no vomiting Physical Exam Physical Exam: Constitutional: elderly male laying in bed, in NAD Eyes: PERRL, EOMI, conjunctivae normal, anicteric sclerae ENMT: external ear and nose normal, oropharynx normal Respiratory: normal respiratory effort, lungs clear to auscultation, no wheezing, rhonchi or crackles Cardiovascular: Rate/Rhythm: + irregularly irregular, soft syst. murm. at apex, Vessels: normal peripheral pulses Extremities: no edema Gastrointestinal (Abdomen): normal bowel sounds, soft, nontender Musculoskeletal: no cyanosis or clubbing, extremities motor strength 5/5 Right radial cardiac cath site edematous with mild ecchymosis (edema improved), intact distal sensation/cap. refill Skin: no rashes, warm and dry Neurologic: PERRL, EOMI, accommodation nl, no face palsy, no dysarthria, speech fluent, moves all extremities spontaneously Psychiatric: A+Ox3, euthymic affect Results & Data Vital Signs (Past 12 Hours) Vital Signs Temp Pulse Resp BP Pulse Ox 06/07/19 18:00 72 16 96 06/07/19 17:53 75 19 113/67 94 06/07/19 17:30 76 18 97 06/07/19 17:00 84 17 06/07/19 16:30 81 20 97 06/07/19 16:14 36.8 C 86 26 H 06/07/19 15:30 64 16 97 06/07/19 15:12 97 06/07/19 14:30 70 28 H 95 06/07/19 14:00 71 27 H 95 06/07/19 13:30 66 12 96 06/07/19 13:05 79 19 06/07/19 12:31 67 10 L 96 06/07/19 12:29 75 7 L 92/61 L 96 06/07/19 12:01 59 L 14 96 06/07/19 11:59 37 C 72 21 106/65 95 06/07/19 11:53 77 20 106/70 97 06/07/19 11:30 77 20 06/07/19 11:00 58 L 14 06/07/19 10:30 78 14 06/07/19 10:00 84 15 06/07/19 09:30 72 16 Laboratory Results 06/07/19 06/07/19 Range/Units 04:37 04:37 WBC 9.82 (4.8-10.8) K/uL RBC 4.30 L (4.7-6.1) M/uL Hgb 13.9 L (14.0-18.0) g/dL Hct 42.6 (42-52) % MCV 99.1 (80-100) fL MCH 32.3 (25-34) pg MCHC 32.6 (32-36) g/dL RDW Std Deviation 46.3 (36.4-46.3) fL RDW Coeff of Roxana 12.9 (11.5-14.5) % Plt Count 198 (130-400) K/uL MPV 9.9 (7.4-10.4) fL Immature Gran % (Auto) 0.2 % Neut % (Auto) 67.2 % Lymph % (Auto) 21.4 % [place] % (Auto) 8.9 % Eos % (Auto) 2.0 % Baso % (Auto) 0.3 % Immature Gran # (Auto) 0.02 (0.00-0.02) K/uL Neut # (Auto) 6.60 H (1.4-6.5) K/uL Lymph # (Auto) 2.10 (1.2-3.4) K/uL [place] # (Auto) 0.87 H (0.11-0.59) K/uL Eos # (Auto) 0.20 (0-0.5) K/uL Baso # (Auto) 0.03 (0-0.2) K/uL Sodium 140 (136-145) mmol/L Potassium 4.1 (3.5-5.1) mmol/L Chloride 111 H (98-107) mmol/L Carbon Dioxide 26 (21-32) mmol/L Anion Gap 3.0 (3-11) BUN 16 (7-18) mg/dl Creatinine 1.07 (0.6-1.4) mg/dl Est Cr Clr Drug Dosing 71.0 ml/min Est GFR ( Amer) 78.8 Est GFR (Non-Af Amer) 68.0 BUN/Creatinine Ratio 14.8 (10-20) Glucose 84 (70-99) mg/dl Calcium 8.6 (8.5-10.1) mg/dl Phosphorus 3.2 (2.5-4.9) mg/dl Magnesium 2.0 (1.8-2.4) mg/dl Medications Administered Current Inpatient Medications Apixaban (Eliquis) 5 mg PO BID [facility] Stop: 07/06/19 08:59 Last Admin: 06/07/19 21:06 Dose: 5 mg Documented by: Aspirin (Ecotrin Ectab) 81 mg PO [facility] Stop: 07/06/19 08:59 Last Admin: 06/07/19 07:33 Dose: 81 mg Documented by: Atorvastatin Calcium (Lipitor) 80 mg PO [facility] Stop: 07/06/19 08:59 Last Admin: 06/07/19 07:36 Dose: 80 mg Documented by: Bupropion HCl (Wellbutrin-Xl) 150 mg PO [facility] Stop: 07/06/19 08:59 Last Admin: 06/07/19 07:36 Dose: 150 mg Documented by: Clopidogrel Bisulfate (Plavix) 75 mg PO [facility] Stop: 07/08/19 08:59 Lisinopril (Zestril) 5 mg PO [facility] Stop: 07/06/19 08:59 Last Admin: 06/07/19 07:37 Dose: 5 mg Documented by: Metoprolol Tartrate (Lopressor) 25 mg PO BID [facility] Stop: 07/05/19 20:59 Last Admin: 06/07/19 21:07 Dose: 25 mg Documented by: Multivitamins (Multivitamin Tab) 1 tab PO [facility] Stop: 07/06/19 08:59 Last Admin: 06/07/19 07:34 Dose: 1 tab Documented by: Nitroglycerin (Nitrostat) 0.4 mg SL PRN PRN PRN Reason: Chest Pain Stop: 07/05/19 12:57 Ondansetron HCl (Zofran) 4 mg IV Q6H PRN PRN Reason: Nausea And Vomiting Stop: 07/05/19 12:57
[2019-06-08 04:28] LABS: Hematocrit (blood only) 41.1 % (42-52); Hemoglobin 13.8 g/dL (14.0-18.0); Mean Corpuscular Hgb Conc 33.6 g/dL (32-36); Mean Corpuscular Volume 98.3 fL (80-100); Mean Platelet Volume 9.8 fL (7.4-10.4); Platelet Count 205 K/uL (130-400); RDW Coefficient of Variation 12.9 % (11.5-14.5); RDW Standard Deviation 46.4 fL (36.4-46.3); Red Blood Count 4.18 M/uL (4.7-6.1); White Blood Count 8.76 K/uL (4.8-10.8)
[2019-06-08 04:45] LABS: BUN Creatinine Ratio 16.7 (10-20); Calcium 8.7 mg/dl (8.5-10.1); Creatinine Clr Calc Pharmacy 79.9 ml/min; Est GFR (Non-African American) 78.5; Potassium 4.1 mmol/L (3.5-5.1)
[2019-06-08] MEDS: APIXABAN 5 MG TABLET PO SCH (08:48)
[2019-06-08] MEDS: lisinopriL 5 MG TAB PO SCH (08:49)
[2019-06-08] MEDS: MULTIVITAMIN TAB PO SCH (08:49)
[2019-06-08] MEDS: METOPROLOL TARTRATE 25 MG TAB PO SCH (08:49)
[2019-06-08] MEDS: ASPIRIN 81 MG ECTAB PO SCH (08:49)
[2019-06-08] MEDS: BuPROPion XL 150 MG TABCR PO SCH (08:49)
[2019-06-08] MEDS: ATORVASTATIN 40 MG TAB PO SCH (08:49)
[2019-06-08] MEDS ORDERED: CLOPIDOGREL BISULFATE 75 MG TAB PO SCH (09:00)
--- NOTE | 2019-06-08 12:49 | Electrocardiogram Report ---
Test Reason : Blood Pressure : / mmHG Vent. Rate : 075 BPM Atrial Rate : 070 BPM P-R Int : 000 ms QRS Dur : 104 ms QT Int : 478 ms P-R-T Axes : 000 100 247 degrees QTc Int : 533 ms Atrial fibrillation Rightward axis Low voltage QRS Prolonged QT Abnormal ECG When compared with ECG of 06-JUN-2019 14:44, No significant change was found Confirmed by Edin Graham ([id number]) on 06/08/2019 12:49:17 PM Referred By: REFERRED SELF Confirmed By:Edin Graham
--- NOTE | 2019-06-08 13:20 | Discharge Summary ---
Date of Service June 08, 2019 Admission HPI Per Admitting Provider 73-year-old male who presented to the ED for evaluation of chest pain shortness of breath. Patient reports he was out for his usual walk this morning and when he started to walk up the hill, he became very short of breath, more than his usual. Symptoms resolved with rest. Patient reports he then went out for breakfast and while driving home, he developed severe, 10/10 chest pain. EMS was called and patient was brought to the ED for further evaluation. EKG showed subtle inferior ST elevations with anterior ST depressions. Patient was taken emergently to the [facility]. Patient received 2 drug-eluting stents, one to OM 2 and one to OM 3. Cardiac cath also showed 95% ostial RCA and 70% mid LAD. Patient was seen and examined in the ICU. Denies any current chest pain or shortness of breath. Reports that up until today, he was feeling very well. No other recent illness, fevers, chills. Denies abdominal pain, nausea, vomiting, diarrhea. No urinary symptoms. Admission Exam Per Admitting Provider Constitutional: WD/WN, vitals as above Eyes: PERRL, conjunctivae normal, anicteric sclerae ENMT: external ear and nose normal, oropharynx normal Respiratory: normal respiratory effort, lungs clear to auscultation Cardiovascular: Rate/Rhythm: regular rate and + irregularly irregular Vessels: normal peripheral pulses Extremities: no edema Gastrointestinal (Abdomen): normal bowel sounds, soft, nontender, no hepatosplenomegaly Musculoskeletal: no cyanosis or clubbing, extremities motor strength 5/5 Right radial cardiac cath site dressing dry and intact, no signs of hematoma, CSM checks intact to right hand Skin: no rashes, warm and dry Neurologic: PERRL, EOMI, accommodation nl, no face palsy, no dysarthria Psychiatric: A+Ox3, euthymic affect Principal Diagnosis Acute coronary syndrome, non-STEMI, status post cardiac cath and VERENA stents x3 placement, atrial fibrillation Discharge Exam Constitutional: elderly male laying in bed, in NAD Eyes: PERRL, EOMI, conjunctivae normal, anicteric sclerae ENMT: external ear and nose normal, oropharynx normal Respiratory: normal respiratory effort, lungs clear to auscultation, no wheezing, rhonchi or crackles Cardiovascular: Rate/Rhythm: + irregularly irregular, soft syst. murm. at apex, Vessels: normal peripheral pulses Extremities: no edema Gastrointestinal (Abdomen): normal bowel sounds, soft, nontender Musculoskeletal: no cyanosis or clubbing, extremities motor strength 5/5 Right radial cardiac cath site edematous with mild ecchymosis (edema improved), intact distal sensation/cap. refill Skin: no rashes, warm and dry Neurologic: PERRL, EOMI, accommodation nl, no face palsy, no dysarthria, speech fluent, moves all extremities spontaneously Psychiatric: A+Ox3, euthymic affect Discharge Data Allergies Allergy/AdvReac Type Severity Reaction Status Date / Time cyclobenzaprine Allergy Verified 03/03/19 15:37 [From Flexeril] flecainide Allergy Verified 03/03/19 15:37 rosuvastatin [From Crestor] Allergy Verified 03/03/19 15:37 simvastatin Allergy Verified 03/03/19 15:38 metoprolol AdvReac Intermediate Sluggish/Tired Verified 08/08/18 13:10 , dizziness oxycodone AdvReac Unknown couldn't Verified 08/08/18 13:10 sleep bad dreams Consultations 06/05/19 13:03 Consult Cardiac Rehabilitation Routine 06/05/19 13:04 Consult Case Management - Discharge Planning Routine Consult Practice Representative Routine Procedures Performed Operation Date: 06/05/19 11:30 Actual Procedures p Aspiration/PCI w/VERENA for Stemi - Kuldip Ayala MD s Drug Eluting Stent each ADDTL Vessel - Kuldip Ayala MD Operation Date: 06/06/19 09:00 Actual Procedures p Cath, Left with Cors and Vent - Kuldip Ayala MD p Drug Eluting Stent SGl Vessel - Kuldip Ayala MD s IVUS Coronary Single Vessel - Kuldip Ayala MD s Cineradiography w/Routine Exam - Kuldip Ayala MD Ordered Studies 06/05/19 11:14 CL Cath Imgs for PACS use only Stat 06/06/19 12:15 CL Cath Imgs for PACS use only DAILY 06/06/19 13:54 CL IVUS Coronary Single Vessel Stat Hospital Course (1) STEMI (ST elevation myocardial infarction): ACS Non STEMI NSVT -Admitted to ICU post cardiac cath -Patient presented to ED with reports of exertional shortness of breath and chest pain -EKG showed subtle ST elevations in the inferior leads with ST depressions in the anterior leads, patient taken emergently to cardiac [facility] -s/p one VERENA to OM2 and one VERENA to OM3 (06/05/2019); cardiac cath also showed 95% ostial RCA and 70% mid LAD -another cardiac cath next day (06/06/2019), now pt is also s/p one VERENA in mid LAD -Outpatient senior qa engineer is Dr. Sotelo -Loaded with Prasugrel 60 mg during first cath, transition to clopidogrel prior to discharge (start today 06/08) - stopped prasugrel, cont. ASA - cont. Eliquis BID -Home on triple therapy with Eliquis, clopidogrel, aspirin for 1 month then continue on Eliquis/clopidogrel alone for at least 1 year. -Troponin peaked -Resting echo: EF 40-45%, with lateral, inferolateral wall motion abnormality, RV dilation, left to right interatrial shunt -Beta-enid and ANNALEE inhibitor started, uptitrate as BP allows -High intensity statin started (2) Paroxysmal atrial fibrillation: -Currently in atrial fibrillation with rates in the 70-80s -Prior to hospitalization, was rate controlled on diltiazem which was discontinued in favor of metoprolol as above -Anticoagulated on Eliquis, resumed per interventional cardiology (3) Anxiety: -Continue bupropion Total Time Total Time Spent Total Time Spent (In Minutes): 40 Total Time Includes: Examination of the Patient, Discharge Planning, Medication Reconciliation and Communication With Other Providers Discharge Plan Discharge Items Patient Disposition: Home - Self-Care Reason For Visit: STEMI Discharge Diagnosis: Acute coronary syndrome/ heart attack, S/p cardiac cath and VERENA stents x3 Activity: As commented below Activity Comment: pace yourself, ask for help as needed, follow up w/ cardiac rehab Non-emergency contact: Primary Care Provider and Transportation Driver Call non-emergency contact if: you have any medication questions and your symptoms worsen Follow-up/Referrals: Buddy Oakes MD [Primary Care Provider] - Diet: Heart Healthy Addtl Attending Provider Instructions: Follow up with your primary care doctor within 1 week. You will need to follow up with senior qa engineer, their office will contact you about the appointment. You will also need to follow up at cardiac rehab. Take aspirin, clopidogrel (plavix) and Eliquis for 1 month, then take only plavix and eliquis for about 1 year (your doctor will follow up on your medications). Also start taking metoprolol and lisinopril. Your statin/"cholesterol medication" dose was increased. Nitroglycerin is to be taken ONLY if you have a chest pain. Make sure you will contact medical provider/ go to the Emergency Room if that happens. Please see instructions below: Home Care: * Take your medications exactly as directed. Don't skip doses. * Remember that recovery after a heart attack takes time. Plan to rest for at lease 4-8 weeks while you recover. Then return to normal activity when your doctor says it's okay. * Ask your doctor about joining a heart rehabilitation program. * Tell your doctor if you are feeling depressed. Feelings of sadness are common after a heart attack, but it is important that you speak to someone if you are feeling overwhelmed by these feelings. * If you are having chest pain, call 911 for an ambulance. Do NOT drive yourself to the hospital. * Ask your family members to learn CPR. * Learn to take your own blood pressure and pulse. Keep a record of your results. Ask your doctor when you should seek emergency medical attention. He or she will tell you which blood pressure reading is dangerous. Lifestyle Changes: * Maintain a healthy weight. Get help to lose any extra pounds. * Cut back on salt. * Limit canned, dried, packaged, and fast foods. * Don't add salt to your food. * Season foods with herbs instead of salt when you cook. * Break the smoking habit. Enroll in a stop-smoking program to improve your chances of success. * Limit fatty foods. * Ask your doctor about having your lipid levels checked regularly. * Build up your activity according to your doctor's recommendation. * Ask your doctor when it's okay to resume sexual activity. * Tell your doctor about any erectile dysfunction (ED) medication you are taking. Some ED medications are not safe if you take certain heart medications. * Try to manage stress. Follow Up: It is important for you to keep your follow up appointments with your medical provider. Pending Studies at Discharge: No Stand-Alone Forms: [facility], Smoking Cessation Medications and DC Order Prescriptions: New clopidogrel 75 mg Tablet 75 mg PO QAM 30 Days Qty: 30 RF: 0 atorvastatin 40 mg Tablet 80 mg PO QAM 30 Days Qty: 60 RF: 0 lisinopril [Zestril] 5 mg Tablet 5 mg PO QAM 30 Days Qty: 30 RF: 0 metoprolol tartrate 25 mg Tablet 25 mg PO BID 30 Days Qty: 60 RF: 0 nitroglycerin [Nitrostat] 0.4 mg Tablet, Sublingual 0.4 mg sublingual PRN PRN (Reason: chest pain) 5 Days Qty: 7 RF: 0 aspirin [Ecotrin Low Strength] 81 mg Tablet,Delayed Release (Dr/Ec) 81 mg PO QAM 30 Days Qty: 30 RF: 0 Continued multivitamin Tablet 1 tab PO QAM RF: 0 bupropion HCl 150 mg tablet extended release 24 hr 150 mg PO QAM RF: 0 Eliquis 5 mg Tablet 5 mg PO BID RF: 0 Discontinued atorvastatin 40 mg Tablet 40 mg PO QAM Qty: 30 RF: 0 diltiazem HCl 120 mg Capsule,Extended Release 24hr 120 mg PO QAM Qty: 30 RF: 0 Discharge Orders: Discharge Order (Routine); Ordered 06/08/19 Ordered By: Vinayak Can Admission Data Admit Date/Time: 06/05/19 13:04 Attending Provider: Vinayak Can Admit Provider: Bulmaro Jara Primary Care Provider: Buddy Oakes Other Providers: Kuldip Ayala ; Iban Harkins Other Interventions: Discharge Summary Assessment (RN) Last Done: 06/08/19 10:22 DC Date/Time DO NOT enter until pt leaves facility: 06/08/19 13:53
== END 2019-06-08 13:53 | disposition home or self-care (01) | DRG 247 ==
LOC: ED 11:11 → CC 11:27 → SUATTDRO 13:04 → 1E 13:04